=== PATIENT | male | born 1945 | race Caucasian/White ===

== ENCOUNTER 2024-09-06 00:10 | Inpatient (IN) | payer OTHER, MEDICARE ==
[~2024-09-06] VITALS: Ht 175.3 cm; Wt 100.5 kg
[2024-09-06] VITALS (7 sets, daily range): BP systolic 112–136; BP diastolic 60–66; PULSE 51–59; RESP 12–22; TEMP 97.7–98.7; O2SAT 97–99
[~2024-09-06 00:10] MED LIST: ASPI300S PR; DOXA1TAB50 PO; LIS10T PO; MAGN400C3 PO; METO25TA36 PO; MULT-839 PO; NIAC250C16 PO; OMEG-20 PO; OMEP20CA74 PO; POTA80TA PO; SIMV80TA17 PO; [UNRECOGNIZED DRUG - CODE] EX
--- NOTE | 2024-09-06 00:19 | ECG ---
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
[2024-09-06] MEDS: ASPirin 81 mg TAB PO ONE (01:04)
[2024-09-06] MEDS: NITROGLYCERIN 0.4 MG SL TAB SL ONE (01:04)
--- NOTE | 2024-09-06 01:07 | ED.PDOC ---
HPI Comments 79-year-old male who came to ER via EMS for chest pains. Patient has history of hypertension, dyslipidemia and SVTs. For the past 2 days, patient has been having intermittent episodes of chest pains and palpitations, which spontaneously resolved after few minutes. Few hours ago recurrence of chest pain and palpitations which persisted, prompted the patient to come to the emergency room. Noted also shortness of breath, nausea and vomiting. Patient took 324 aspirin prior to coming to the ER Chief Complaint: Chest Pain Time Seen by MD: 01:06 Primary Care Provider: [facility] Reviewed Notes: Litigation Associate Notes Allergies: Coded Allergies: NO KNOWN ALLERGIES (Unverified , 03/23/13) Home Meds Active Scripts Metoprolol Succinate (Toprol Xl) 25 Mg Tab, 25 MG PO DAILY, #30 Prov:JAMAL ALCANTAR MD 03/24/13 Reported Medications Simvastatin (Simvastatin) 80 Mg Tab, 80 MG PO DAILY 03/23/13 Magnesium Oxide (Mg Supplement (MAGNESIUM) 400 Mg Cap, 250 MG PO DAILY 03/23/13 Potassium Gluconate (POTASSIUM GLUCONATE) 80 Mg Tab, 550 MG PO DAILY 03/23/13 Doxazosin Mesylate (Doxazosin Mesylate) 8 Mg Tab, 8 MG PO DAILY 03/23/13 Niacin (NIACIN) 250 Mg Cap, 500 MG PO DAILY 03/23/13 [place]-3 Fatty Acids (FISH OIL) 1,000 Mg Cap, 1000 MG PO DAILY, #2 03/23/13 Multiple Vitamin (MULTI-VITAMIN DAILY) Daily Tab, 1 TAB PO DAILY 03/23/13 Lisinopril (ZESTRIL TABLET) 10 Mg Tb, 10 MG PO DAILY 03/23/13 Omeprazole (PRILOSEC) 20 Mg Cap, 20 MG PO DAILY 03/23/13 Aspirin (ASPIRIN) 300 Mg Rosenbaum, 163 MG NC BID 03/23/13 Desonide Ointment W/ Wound [place] (DESONIL) 0.05 % Kit, 0.05 % EX TUTHSA 03/23/13 Information Source: Patient, Emergency Med Personnel Mode of Arrival: EMS Severity: Moderate Timing: Hours Duration: Intermittent Prehospital treatment: 12 Lead EKG, Accucheck Location: Substernal Quality: Other (palpitations) Onset: With Light Exertion Cardiac Risk Factors: Hyperlipidemia, HTN History of: Similar pain in past Associated Signs and Symptoms: SOB, Palpitations, N/V Past Medical History PAST MEDICAL HISTORY: High Lipids, HTN Past Medical History (Other): SVTs Family History Family History: No family hx of Cancer, No family hx of DM Social History Smoker: Non-Smoker Alcohol: Denies ETOH Use Drugs: Denies Drug Use Lives In: Home Constitutional: denies: chills, diaphoresis, fatigue, fever, malaise, sweats, weakness, others EENTM: denies: blurred vision, double vision, ear bleeding, ear discharge, ear drainage, ear pain, ear ringing, eye pain, eye redness, hearing loss, mouth pain, mouth swelling, nasal discharge, nose bleeding, nose congestion, nose pain, photophobia, tearing, throat pain, throat swelling, voice changes, others Respiratory: denies: cough, hemoptysis, orthopnea, SOB at rest, shortness of breath, SOB with excertion, stridor, wheezing, others Cardiovascular: reports: chest pain, palpitations; denies: dizzy spells, diaphoresis, Dyspnea on exertion, edema, irregular heart beat, left arm pain, lightheadedness, PND, syncope, others Gastrointestinal: denies: abdomen distended, abdominal pain, blood streaked bowels, constipated, diarrhea, dysphagia, difficulty swallowing, hematemesis, melena, nausea, poor appetite, poor fluid intake, rectal bleeding, rectal pain, vomiting, others Genitourinary: denies: burning, dysuria, flank pain, frequency, hematuria, incontinence, penile discharge, penile sore, pain, testicle pain, testicle swelling, urgency, others Neurological: denies: dizziness, fainting, headache, left sided numbness, left sided weakness, numbness, paresthesia, pre-existing deficit, right sided numbness, right sided weakness, seizure, speech problems, tingling, tremors, weakness, others Musculoskeletal: denies: back pain, gout, joint pain, joint swelling, muscle pain, muscle stiffness, neck pain, others Integumetry: denies: bruises, change in color, change in hair/nails, dryness, laceration, lesions, lumps, rash, wounds, others Allergic/Immunocompromised: denies: Difficulty Healing, Frequent Infections, Hives, Itching, others Hematologic/Lymphatic: denies: anemia, blood clots, easy bleeding, easy bruising, swollen glands, others Endocrine: denies: excessive hunger, excessive sweating, excessive thirst, excessive urination, flushing, intolerance to cold, intolerance to heat, unexplained weight gain, unexplained weight loss, others Psychiatric: denies: anxiety, bipolar disorder, depression, hopeless, panic disorder, schizophrenia, sleepless, suicidal, others Physical Exam General Appearance: No Apparent Distress, Normal HEENT: Normal ENT Inspection, Pharynx Normal, TMs Normal Neck: Full Range of Motion, Non-Tender, Normal, Normal Inspection Respiratory: Chest Non-Tender, Lungs Clear, No Accessory Muscle Use, No Respiratory Distress, Normal Breath Sounds Cardiovascular: No Edema, No JVD, No Murmur, No Gallop, Normal Peripheral Pulses, Regular Rate/Rhythm Breast Exam: Deferred Gastrointestinal: No Organomegaly, Non Tender, No Pulsatile Mass, Normal Bowel Sounds, Soft Genitalia: Deferred Pelvic: Deferred Rectal: Deferred Extremities: No calf tenderness, Normal capillary refill, Normal inspection, Normal range of motion, Non-tender, No pedal edema Musculoskeletal : Apperance: Normal Neurologic: Alert, traffic engineering technician II-XII nml as Tested, No Motor Deficits, Normal Affect, Normal Mood, No Sensory Deficits Cerebellar Function: Normal Reflexes: Normal Skin: Dry, Normal Color, Warm Lymphatic: No Adenopathy EKG EKG : Pulse Rate (adult): 58 Cardiac Rhythm: NSR Was a procedure done? Was a procedure done?: No CP Differential Dx Differential Diagnosis: A-fib, A-Flutter, Angina, Anxiety / Panic Attack, Hyperventilation, Hypoxia, PSVT, Sinus Tachycardia Differential Diagnosis: Angina, Chest Wall Pain, Costochondritis, Esophageal reflux/spasm, Gastritis, Myocardial Infarction X-Ray, Labs, Meds, VS Vital Signs Date Time Temp Pulse Resp B/P (MAP) Pulse Ox O2 Delivery O2 Flow Rate FiO2 09/06/24 01:33 59 09/06/24 01:07 58 09/06/24 01:04 110/68 09/06/24 00:18 97.9 64 18 137/88 (104) 98 97.9 09/06/24 00:10 58 Lab Test 09/06/24 01:12 Range/Units White Blood Count 7.0 4.4-10.8 10^3/uL Red Blood Count 4.89 4.5-5.90 10^6/uL Hemoglobin 15.5 13.5-17.5 g/dL Hematocrit 44.2 41.0-53.0 % Mean Corpuscular Volume 90.4 80.0-100.0 fL Mean Corpuscular Hemoglobin 31.6 28.0-32.0 pg Mean Corpuscular Hemoglobin Concent 35.0 32.0-36.0 g/dL Red Cell Distribution Width 14.1 11.8-14.3 % Platelet Count 274 140-450 10^3/uL Mean Platelet Volume 8.1 6.9-10.8 fL Neutrophils (%) (Auto) 68.8 37.0-80.0 % Lymphocytes (%) (Auto) 18.1 10.0-50.0 % Monocytes (%) (Auto) 10.0 0.0-12.0 % Eosinophils (%) (Auto) 2.5 0.0-7.0 % Basophils (%) (Auto) 0.6 0.0-2.0 % Neutrophils # (Auto) 4.8 1.6-8.6 10 ^3/uL Lymphocytes # (Auto) 1.3 0.4-5.4 10 ^3/uL Monocytes # (Auto) 0.7 0-1.3 10 ^3/uL Eosinophils # (Auto) 0.2 0-0.8 10 ^3/uL Basophils # (Auto) 0 0-0.2 10 ^3/uL Nucleated Red Blood Cells 0.0 % Prothrombin Time 10.5 9.3-11.8 sec Prothrombin Time INR 0.99 0.9-1.15 Activated Partial Thromboplast Time 29.8 24.5-34.5 SEC Sodium Level 140 136-145 mmol/L Potassium Level 3.1 L 3.5-5.1 mmol/L Chloride Level 104 98-107 mmol/L Carbon Dioxide Level 27 20-31 mmol/L Anion Gap 9 5-15 Blood Urea Nitrogen 24 H 9-23 mg/dL Creatinine 1.53 H 0.700-1.30 mg/dL Glomerular Filtration Rate Calc 46 >90 mL/min BUN/Creatinine Ratio 15.7 10.0-20.0 Serum Glucose 105 74-106 mg/dL Calcium Level 10.0 8.7-10.4 mg/dL Total Bilirubin 0.4 0.2-1.0 mg/dL Aspartate Amino Transferase (AST) 22 13-40 U/L Alanine Aminotransferase (ALT) 53 H 7-40 U/L Alkaline Phosphatase 71 46-116 U/L Troponin I High Sensitivity 187 *H </=54 ng/L B-Type Natriuretic Peptide 23.08 0-100 pg/mL Total Protein 7.1 5.7-8.2 g/dL Albumin 4.5 3.2-4.8 g/dL Current Medications Medications (Trade) Dose Ordered Sig/Woody Route Start Time Stop Time Status Last Admin Aspirin 162 mg ONCE ONCE PO 09/06/24 00:45 09/06/24 00:46 DC 09/06/24 01:04 Nitroglycerin (Ntrostat Sublingual) 0.4 mg Q5MP ONCE SL 09/06/24 10:00 09/06/24 10:01 09/06/24 01:04 Time of 1ST Reevaluation: 01:01 Reevaluation 1ST: Unchanged Patient Education/Counseling: Diagnosis, Treatment Family Education/Counseling: No Family Present Departure 1 Departure Time of Disposition: 02:07 Impression: Primary Impression: Acute coronary syndrome Additional Impressions: Hypokalemia Renal insufficiency Disposition: ADMITTED INPATIENT Condition: Guarded Discharged With: Self Comments Chest Pain - Acute Coronary Syndrome Chief Complaint: Chest pain History of Present Illness: 79-year-old male presents to the emergency department with a two-day history of intermittent substernal chest pain with pressure-like quality. Patient has a relevant cardiac history including previous episodes of SVT, along with hypertension and hypercholesterolemia. Patient was administered aspirin in the ED and prescribed nitroglycerin PRN for chest pain, though he is currently pain- free at time of evaluation. Review of Systems: Limited by acute presentation Cardiovascular: Positive for chest pain, substernal and pressure-like All other systems reviewed and negative Medications: Aspirin - given in ED Nitroglycerin PRN - prescribed in ED Other home medications not documented Past Medical History: Hypertension Hypercholesterolemia Supraventricular tachycardia (SVT) Lab Results: Troponin: 187 (Elevated) BUN: 24 Creatinine: 1.53 (indicating borderline renal insufficiency) Potassium: 3.1 (Mild hypokalemia) Imaging and Other Relevant Results: EKG: Sinus rhythm at 58 bpm, no ST elevations Chest X-ray: No acute pathology Medical Decision Making: Summary Statement: 79-year-old male with cardiac risk factors presenting with substernal chest pain and elevated troponin, consistent with acute coronary syndrome. Problem List: 1. Acute coronary syndrome 2. Mild hypokalemia 3. Borderline renal insufficiency Differential Diagnosis: 1. Non-ST elevation myocardial infarction (NSTEMI) 2. Unstable angina 3. Stable angina 4. Stress-induced cardiomyopathy 5. Coronary vasospasm ED Course: Patient received aspirin and PRN nitroglycerin. Initial workup revealed elevated troponin, mild hypokalemia, and borderline renal insufficiency. EKG showed no ST elevations. Patient's chest pain resolved during ED stay. Assessment and Plan: 1. Acute Coronary Syndrome: - Admit to hospital for further cardiac workup - Continue aspirin and nitroglycerin PRN - Serial cardiac enzymes and EKGs - Cardiology consultation 2. Hypokalemia (K=3.1): - Initiate potassium replacement - Monitor electrolytes 3. Borderline Renal Insufficiency: - Monitor renal function - Adjust medications as needed based on renal function Billing Information: ICD-10: I21.9 - Acute myocardial infarction, unspecified ICD-10: E87.6 - Hypokalemia ICD-10: N18.9 - Chronic kidney disease, unspecified Critical Care Note Critical Care Time?: Yes (35 min-critical care time only) Critical care comment: Acute chest pain Total critical care time: Approximately 36 minutes Due to a high probability of clinically significant, life threatening deterioration, the patient required my highest level of preparedness to intervene emergently and I personally spent this critical care time directly and personally managing the patient. This critical care time included obtaining a history; examining the patient; pulse oximetry; ordering and review of studies; arranging urgent treatment with development of a management plan; evaluation of patient's response to treatment; frequent reassessment; and, discussions with other providers. This critical care time was performed to assess and manage the high probability of imminent, life-threatening deterioration that could result in multi-organ failure. It was exclusive of separately billable procedures and treating other patients. Stability Stability form required: No Heart Score Heart Score: Heart Score Response (Comments) Value History Moderate Suspicious 1 EKG Repolarization Disturb 1 Age >65 2 Risk Factors >3 or Hx ASHD 2 Troponin >3 x's Normal limit 2 Total 8 I personally scribed for LISA RESENDIZ MD ([email or web address]) on 09/06/24 at 01:07. Electronically submitted by Robby [email or web address]). LISA RESENDIZ MD Sep 06, 2024 01:07
--- NOTE | 2024-09-06 01:22 | DVH ---
CHEST RADIOGRAPH Indication: chest pain Technique: Single frontal view of the chest was obtained Comparison: None FINDINGS: Lines and Tubes: None Lungs: Clear Pleura: No effusion. No pneumothorax. Cardiomediastinal contours: Unremarkable Bones: Unremarkable IMPRESSION: Clear lungs.
[2024-09-06 01:34] LABS: Basophils # (auto) 0 10 ^3/uL (0-0.2); Basophils % (auto) 0.6 % (0.0-2.0); Eosinophils # (auto) 0.2 10 ^3/uL (0-0.8); Eosinophils % (auto) 2.5 % (0.0-7.0); Hematocrit 44.2 % (41.0-53.0); Hemoglobin 15.5 g/dL (13.5-17.5); Lymphocytes # (auto) 1.3 10 ^3/uL (0.4-5.4); Lymphocytes % (auto) 18.1 % (10.0-50.0); Mean Corpuscular Hemoglobin 31.6 pg (28.0-32.0); Mean Corpuscular Volume 90.4 fL (80.0-100.0); Monocytes # (auto) 0.7 10 ^3/uL (0-1.3); Neutrophils # (auto) 4.8 10 ^3/uL (1.6-8.6); Neutrophils % (auto) 68.8 % (37.0-80.0); Platelet Count (auto) 274 10^3/uL (140-450); Red Blood Cells 4.89 10^6/uL (4.5-5.90); Red Cell Distribution Width 14.1 % (11.8-14.3)
--- NOTE | 2024-09-06 01:40 | ECG ---
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
[2024-09-06 01:48] LABS: INR 0.99 (0.9-1.15); Partial Thromboplastin Time 29.8 SEC (24.5-34.5); Prothrombin Time 10.5 sec (9.3-11.8)
[2024-09-06 01:51] LABS: Alkaline Phosphatase 71 U/L (46-116); Anion Gap 9 (5-15); BUN/Creatinine Ratio 15.7 (10.0-20.0); Carbon Dioxide 27 mmol/L (20-31); Chloride 104 mmol/L (98-107); Glucose 105 mg/dL (74-106); Sodium 140 mmol/L (136-145); Total Protein 7.1 g/dL (5.7-8.2)
[2024-09-06 01:52] LABS: Albumin 4.5 g/dL (3.2-4.8); Aspartate Aminotransferase 22 U/L (13-40); Bilirubin, Total 0.4 mg/dL (0.2-1.0)
[2024-09-06 01:54] LABS: Alanine Aminotransferase 53 U/L (7-40); Blood Urea Nitrogen 24 mg/dL (9-23); Potassium 3.1 mmol/L (3.5-5.1)
[2024-09-06] MEDS: POTASSIUM CHL 20 Meq TABLET PO ONE (02:15)
[2024-09-06] MEDS: NITROGLYCERIN 50MG/250ML 250 ML IV ONE (05:00)
[2024-09-06] MEDS ORDERED: MORPHINE SULFATE INJ 2 MG/ml SYRG IV PRN (08:00)
[2024-09-06] MEDS ORDERED: NITROGLYCERIN 0.4 MG SL TAB SL PRN (08:00)
[2024-09-06] MEDS ORDERED: DOCUSATE SOD 100 MG CAP PO PRN (08:00)
[2024-09-06] MEDS ORDERED: HYDROcodone-ACET 5/325MG TAB PO PRN (08:00)
[2024-09-06] MEDS ORDERED: ONDANSETRON HCL 4 MG/2 ML VIAL IV PRN (08:00)
[2024-09-06] MEDS ORDERED: ACETAMINOPHEN 325 MG TAB PO PRN (08:00)
--- NOTE | 2024-09-06 08:06 | DVHHP2 ---
History of Present Illness Reason for Visit: Chest Pain History of Present Illness Ramsey Oliva is a 79-year-old male with past medical history of hypertension, hyperlipidemia, and SVT who comes in with complaints of chest pain. Patient states he has been experiencing intermittent chest pain for the last 2-3 days with activity. Last night about 2100 while resting in bed the chest pain came back, more severe, with bilateral arm numbness/tingling prompting him to come to the hospital. Cardiovascular: HTN, hyperipidemia, Other (SVT) Past Surgical History: Other (Prostate cancer, surgical removal, left hand finger amputation) Smoke: No ALCOHOL: rare Drugs: None Lives: with Family Domestic Violence: Neg Review of Systems Constitutional: No: Fever, Chills, Sweats, Weakness, Malaise, Other Eyes: No: Pain, Vision change, Conjunctivae inflammation, Eyelid inflammation, Other, Redness ENT: No: Ear pain, Ear discharge, Nose pain, Nose discharge, Nose congestion, Mouth pain, Mouth swelling, Throat pain, Throat swelling, Other Respiratory: No: Cough, Dry, Shortness of breath, SOB with excertion, Wheezing, Hemoptysis, Pleuritic Pain, Sputum, Wheezing, Other Cardiovascular: Chest Pain (left arm numbness); No: Palpitations, Orthopnea, Paroxysmal Noc. Dyspnea, Edema, Lt Headedness, Other Gastrointestinal: No: Nausea, Vomiting, Abdominal Pain, Diarrhea, Constipation, Melena, Hematochezia, Other Genitourinary: No Dysuria, No Frequency, No Incontinence, No Hematuria, No Retention, No Other Musculoskeletal: No: other, neck pain, shoulder pain, arm pain, back pain, hand pain, leg pain, foot pain Skin: No: Rash, Lesions, Jaundice, Bruising, Other Neurological: No: Weakness, Numbness, Incoordination, Change in speech, Confusion, Seizures, Other Allergies: Coded Allergies: NO KNOWN ALLERGIES (Unverified , 03/23/13) Medications Current Medications Medications Dose Ordered Sig/Woody Route Start Time Stop Time Status Last Admin Dose Admin Acetaminophen/ Hydrocodone Bitart 1 tab Q4HP PRN PO 09/06/24 08:00 UNV Ondansetron HCl 4 mg Q4HP PRN IV 09/06/24 08:00 UNV Docusate Sodium 100 mg BIDPRN PRN PO 09/06/24 08:00 UNV Acetaminophen 650 mg Q6HP PRN PO 09/06/24 08:00 UNV Nitroglycerin 0.4 mg Q5MINP PRN SL 09/06/24 08:00 UNV Morphine Sulfate 2 mg Q30M PRN IV 09/06/24 08:00 UNV Exam Vital Signs Vital Signs Date Time Temp Pulse Resp B/P (MAP) Pulse Ox O2 Delivery O2 Flow Rate FiO2 09/06/24 06:47 98.4 50 15 115/63 (80) 99 98.4 09/06/24 00:53 Room Air* 0 21 General Appearance: Alert, Oriented X3, Cooperative HEENT: Atraumatic, PERRLA Respiratory: Clear to auscultation, Normal air movement Cardiovascular: Normal S1, Normal S2, Other (Bradycardia) Abdominal: Normal bowel sounds, Soft, No tenderness Extremities: No clubbing, No cyanosis, No edema, Normal pulses, No tenderness/swelling Skin: No rashes, No breakdown, No significant lesion Neuro: Normal gait, Normal speech, Strength at 5/5 X4 ext Psych/Mental Status: Mental status NL, Mood NL Labs/Xrays Labs Test 09/06/24 04:01 09/06/24 01:12 Range/Units Troponin I High Sensitivity 321 *H </=54 ng/L White Blood Count 7.0 4.4-10.8 10^3/uL Red Blood Count 4.89 4.5-5.90 10^6/uL Hemoglobin 15.5 13.5-17.5 g/dL Hematocrit 44.2 41.0-53.0 % Mean Corpuscular Volume 90.4 80.0-100.0 fL Mean Corpuscular Hemoglobin 31.6 28.0-32.0 pg Mean Corpuscular Hemoglobin Concent 35.0 32.0-36.0 g/dL Red Cell Distribution Width 14.1 11.8-14.3 % Platelet Count 274 140-450 10^3/uL Mean Platelet Volume 8.1 6.9-10.8 fL Neutrophils (%) (Auto) 68.8 37.0-80.0 % Lymphocytes (%) (Auto) 18.1 10.0-50.0 % Monocytes (%) (Auto) 10.0 0.0-12.0 % Eosinophils (%) (Auto) 2.5 0.0-7.0 % Basophils (%) (Auto) 0.6 0.0-2.0 % Neutrophils # (Auto) 4.8 1.6-8.6 10 ^3/uL Lymphocytes # (Auto) 1.3 0.4-5.4 10 ^3/uL Monocytes # (Auto) 0.7 0-1.3 10 ^3/uL Eosinophils # (Auto) 0.2 0-0.8 10 ^3/uL Basophils # (Auto) 0 0-0.2 10 ^3/uL Nucleated Red Blood Cells 0.0 % Prothrombin Time 10.5 9.3-11.8 sec Prothrombin Time INR 0.99 0.9-1.15 Activated Partial Thromboplast Time 29.8 24.5-34.5 SEC Sodium Level 140 136-145 mmol/L Potassium Level 3.1 L 3.5-5.1 mmol/L Chloride Level 104 98-107 mmol/L Carbon Dioxide Level 27 20-31 mmol/L Anion Gap 9 5-15 Blood Urea Nitrogen 24 H 9-23 mg/dL Creatinine 1.53 H 0.700-1.30 mg/dL Glomerular Filtration Rate Calc 46 >90 mL/min BUN/Creatinine Ratio 15.7 10.0-20.0 Serum Glucose 105 74-106 mg/dL Calcium Level 10.0 8.7-10.4 mg/dL Total Bilirubin 0.4 0.2-1.0 mg/dL Aspartate Amino Transferase (AST) 22 13-40 U/L Alanine Aminotransferase (ALT) 53 H 7-40 U/L Alkaline Phosphatase 71 46-116 U/L B-Type Natriuretic Peptide 23.08 0-100 pg/mL Total Protein 7.1 5.7-8.2 g/dL Albumin 4.5 3.2-4.8 g/dL CHEST RADIOGRAPH FINDINGS: Lines and Tubes: None Lungs: Clear Pleura: No effusion. No pneumothorax. Cardiomediastinal contours: Unremarkable Bones: Unremarkable IMPRESSION: Clear lungs. Assessment/Plan Assessment/Plan Assessment: Acute coronary syndrome, Hypokalemia, Hypertension, Hyperlipidemia, Obesity, Plan: Admit to Tele, Cardiology consult, ECHO, NPO, TSH, Lipid panel, ACS protocol, Home medications reconciled, Metoprolol held due to bradycardia, Plan discussed with: Patient My Orders Orders - ROLANDO MEIER FIELD SERVICE REP Procedure Category Date Status Time Admit ADMIT 09/06/24 Transmitted 07:47 Code Status CODE 09/06/24 Transmitted 07:47 Hydrocodone-Acet PHA 09/06/24 Logged 5/325mg Tab ([place] 08:00 Ondansetron Hcl PHA 09/06/24 Logged (Zofran) 08:00 Docusate Sodium PHA 09/06/24 Logged Capsule (Colace 08:00 Complete Blood Count LAB 09/07/24 Verified 04:00 Comprehensive LAB 09/07/24 Verified Metabolic Panel 04:00 Npo (Nothing By DIET 09/06/24 Transmitted Mouth) Diet Breakfast Echo 2d Mode Cardiac US 09/06/24 Logged DOP 07:47 Condition: Serious DAVID 09/06/24 In Process 07:47 Acetaminophen Tablet PHA 09/06/24 Logged (Tylenol Tablet) 08:00 Nitroglycerin PHA 09/06/24 Logged Sublingual (Ntrostat 08:00 Morphine Sulfate PHA 09/06/24 Logged Injection 08:00 Stat Ekg For Chest DAVID 09/06/24 In Process Pain 07:47 Notify Md Of Changes DAVID 09/06/24 In Process From Base 07:47 Full Decator Operator For DAVID 09/06/24 In Process 24 Hours 07:47 Emergency Dysrhythmia DAVID 09/06/24 In Process Protocol 07:47 Rhythm Strips Once DAVID 09/06/24 In Process Every Shift 07:47 Oxygen By Nasal RT 09/06/24 Transmitted Cannula 07:47 * Cardiology Consult CONS 09/06/24 Transmitted 07:47 Date of Service: Sep 06, 2024 Billing Provider: ROLANDO MEIER Common Visit Codes: [id number] INP/OBS CARE (MOD) ROLANDO MEIER Sep 06, 2024 08:06
[2024-09-06] MEDS: MAGNESIUM OXIDE 400 MG TAB PO SCH (10:07)
--- NOTE | 2024-09-06 11:17 | DVHINCON2 ---
SAIRA FONG [facility] 09/06/24 1117: Date Seen: Sep 06, 2024 Referring Physician VERONICA Du Reason for Consultation ACS History of Present Illness This is a 79-year-old male patient who presents to the emergency room with chief complaint of chest pain for approximately four days. The patient reports worsening chest pain for the last four days and decided to come to the emergency room for further evaluation. He describes the pain as unprovoked, intermittent, pressure-like in nature, and midsternal with radiation to bilateral arms. A ssociated symptoms include shortness of breath. Initial twelve lead electrocardiogram reveals sinus bradycardia without any significant ST segment changes. Initial troponin level of 187ng/L with peak level at 321ng/L. Significant past medical history includes hypertension, dyslipidemia, GERD, gout, prostate cancer status post radiation and prostatectomy, and obesity. The patient reports a previous angiogram approximately 10 years ago without any catheter based intervention. He states he has not followed up with a cloth designer. Past Medical History Past medical history reviewed. No other significant than mentioned above. Past Surgical History Prostatectomy Left ring finger amputation Family History Family history reviewed. Social History Patient has a 40 pack-year history, quit smoking in 1984 Patient reports to drinking one cup of whiskey per week Denies any illicit drug use Allergies: Coded Allergies: NO KNOWN ALLERGIES (Unverified , 03/23/13) Home Meds Reported Medications Naproxen (NAPROSYN TABLET) 500 Mg Tb, 1 TAB PO BID PRN, #60 TAB 1 Refill 09/06/24 Gabapentin (Gabapentin) 300 Mg Cap, 1 CAP PO BID, #90 CAP 5 Refills 09/06/24 Potassium Chloride (POTASSIUM CHLORIDE CR) 10 Meq Tb, 1 TAB PO DAILY, #30 TAB 5 Refills 09/06/24 Magnesium Oxide (MAGNESIUM OXIDE) 400 Mg Tab, 1 TAB PO DAILY, #30 TAB 5 Refills 09/06/24 Metoprolol Tartrate (Metoprolol Tartrate) 25 Mg Tab, 12.5 MG PO BID, TAB 09/06/24 Losartan Potassium (Losartan Potassium) 25 Mg Tab, 1 TAB PO BID, #90 TAB 1 Refill 09/06/24 Chlorthalidone (Chlorthalidone) 25 Mg Tab, 25 MG PO DAILY, TAB 09/06/24 Simvastatin (Simvastatin) 40 Mg Tab, 1 TAB PO QPM, #30 TAB 5 Refills 09/06/24 Omeprazole (Omeprazole Dr) 20 Mg Cap, 20 MG PO DAILY, CAP 09/06/24 Allopurinol (Allopurinol) 300 Mg Tab, 300 MG PO DAILY, TAB 09/06/24 Magnesium Oxide (Mg Supplement (MAGNESIUM) 400 Mg Cap, 250 MG PO DAILY 03/23/13 Discontinued Reported Medications Simvastatin (Simvastatin) 80 Mg Tab, 80 MG PO DAILY 03/23/13 Potassium Gluconate (POTASSIUM GLUCONATE) 80 Mg Tab, 550 MG PO DAILY 03/23/13 Doxazosin Mesylate (Doxazosin Mesylate) 8 Mg Tab, 8 MG PO DAILY 03/23/13 Niacin (NIACIN) 250 Mg Cap, 500 MG PO DAILY 03/23/13 [place]-3 Fatty Acids (FISH OIL) 1,000 Mg Cap, 1000 MG PO DAILY, #2 03/23/13 Multiple Vitamin (MULTI-VITAMIN DAILY) Daily Tab, 1 TAB PO DAILY 03/23/13 Lisinopril (ZESTRIL TABLET) 10 Mg Tb, 10 MG PO DAILY 03/23/13 Omeprazole (PRILOSEC) 20 Mg Cap, 20 MG PO DAILY 03/23/13 Aspirin (ASPIRIN) 300 Mg Rosenbaum, 163 MG TN BID 03/23/13 Desonide Ointment W/ Wound Dajuan (DESONIL) 0.05 % Kit, 0.05 % EX TUTHSA 03/23/13 Discontinued Scripts Metoprolol Succinate (Toprol Xl) 25 Mg Tab, 25 MG PO DAILY, #30 Prov:JAMAL ALCANTAR MD 03/24/13 Home Meds Home medications reviewed. Current Medications Current Medications Medications (Trade) Dose Ordered Sig/Woody Route PRN Reason Start Time Stop Time Status Last Admin Acetaminophen/ Hydrocodone Bitart (Midkiff 5/325MG Tab) 1 tab Q4HP PRN PO MODERATE PAIN (4-6 PAIN SCALE) 09/06/24 08:00 Ondansetron HCl (Zofran) 4 mg Q4HP PRN IV NAUSEA / VOMITING 09/06/24 08:00 Docusate Sodium (Colace Capsule) 100 mg BIDPRN PRN PO FOR CONSTIPATION 09/06/24 08:00 Acetaminophen (Tylenol Tablet) 650 mg Q6HP PRN PO PAIN SCALE 1-3 OR TEMP>100.4 09/06/24 08:00 Nitroglycerin (Ntrostat Sublingual) 0.4 mg Q5MINP PRN SL FOR CHEST PAIN 09/06/24 08:00 Morphine Sulfate 2 mg Q30M PRN IV FOR CHEST PAIN 09/06/24 08:00 Magnesium Oxide (Mag-Ox Tablet) 400 mg DAILY PO 09/06/24 10:00 09/06/24 10:07 Review of Systems Constitutional: No symptom reported Ears, Nose, & Throat: No symptom reported Eyes: No symptom reported Neurological: No symptoms reported Pulmonary/Respiratory: Shortness of breath Cardiovascular: Chest pain Gastrointestinal: No symptom reported Genitourinary: No symptom reported Musculoskeletal: No symptom reported Skin: No symptom reported Psychiatric: No symptom reported Endocrine: No symptom reported Hematologic/Lymphatic: No symptom reported Vital Signs Vital Signs Date Time Temp Pulse Resp B/P (MAP) Pulse Ox O2 Delivery O2 Flow Rate FiO2 09/06/24 08:00 98.9 49 12 106/63 (77) 99 98.9 09/06/24 07:35 Room Air* 0 21 Physical Exam General Appearance: Cooperative. Obese Pulmonary/Respiratory: Clear, bilateral breaths sounds. Cardiovascular/Chest: Regular rate and rhythm. Peripheral Pulses: 2+ Radial (R). 2+ Radial (L). 2+ Pedal (R). 2+ Pedal (L) Abdominal Exam: Normal bowel sounds. Ankle Exam: Negative ankle edema Lower extremities: Negative lower extremity edema Neuro/Mental Status: A/OX4, coherent. Thoughts/Psych: Normal thought pattern. Appropriate mood and affect. Good judgment and insight. Appearance: No acute distress. Skin Exam: Normal inspection. Normal color. Warm and dry. Labs/Diagnostic Data Labs Test 09/06/24 10:30 09/06/24 04:01 09/06/24 02:30 09/06/24 01:12 Range/Units Thyroid Stimulating Hormone (TSH) 1.74 0.55-4.78 uIU/mL Magnesium Level 2.0 1.6-2.6 mg/dL Triglycerides Level 195 H < 150 mg/dL Cholesterol Level 146 < 200 mg/dL LDL Cholesterol 107 H < 100 mg/dL HDL Cholesterol 28 L 40-59 mg/dL White Blood Count 7.0 4.4-10.8 10^3/uL Red Blood Count 4.89 4.5-5.90 10^6/uL Hemoglobin 15.5 13.5-17.5 g/dL Hematocrit 44.2 41.0-53.0 % Mean Corpuscular Volume 90.4 80.0-100.0 fL Mean Corpuscular Hemoglobin 31.6 28.0-32.0 pg Mean Corpuscular Hemoglobin Concent 35.0 32.0-36.0 g/dL Red Cell Distribution Width 14.1 11.8-14.3 % Platelet Count 274 140-450 10^3/uL Mean Platelet Volume 8.1 6.9-10.8 fL Neutrophils (%) (Auto) 68.8 37.0-80.0 % Lymphocytes (%) (Auto) 18.1 10.0-50.0 % Monocytes (%) (Auto) 10.0 0.0-12.0 % Eosinophils (%) (Auto) 2.5 0.0-7.0 % Basophils (%) (Auto) 0.6 0.0-2.0 % Neutrophils # (Auto) 4.8 1.6-8.6 10 ^3/uL Lymphocytes # (Auto) 1.3 0.4-5.4 10 ^3/uL Monocytes # (Auto) 0.7 0-1.3 10 ^3/uL Eosinophils # (Auto) 0.2 0-0.8 10 ^3/uL Basophils # (Auto) 0 0-0.2 10 ^3/uL Nucleated Red Blood Cells 0.0 % Prothrombin Time 10.5 9.3-11.8 sec Prothrombin Time INR 0.99 0.9-1.15 Activated Partial Thromboplast Time 29.8 24.5-34.5 SEC Sodium Level 140 136-145 mmol/L Potassium Level 3.1 L 3.5-5.1 mmol/L Chloride Level 104 98-107 mmol/L Carbon Dioxide Level 27 20-31 mmol/L Anion Gap 9 5-15 Blood Urea Nitrogen 24 H 9-23 mg/dL Creatinine 1.53 H 0.700-1.30 mg/dL Glomerular Filtration Rate Calc 46 >90 mL/min BUN/Creatinine Ratio 15.7 10.0-20.0 Serum Glucose 105 74-106 mg/dL Hemoglobin A1c 5.6 <5.7 % A1C Calcium Level 10.0 8.7-10.4 mg/dL Total Bilirubin 0.4 0.2-1.0 mg/dL Aspartate Amino Transferase (AST) 22 13-40 U/L Alanine Aminotransferase (ALT) 53 H 7-40 U/L Alkaline Phosphatase 71 46-116 U/L B-Type Natriuretic Peptide 23.08 0-100 pg/mL Total Protein 7.1 5.7-8.2 g/dL Albumin 4.5 3.2-4.8 g/dL Assessment NSTEMI, rule out coronary artery disease Hypertension Dyslipidemia Hypokalemia Acute kidney injury History of tobacco use Obesity Plan/Recommendation We will continue with the following plan/recommendations (Dr. Bland): * Echocardiogram reveals EF 50-55% with possible distal anteroseptal hypokinesis * Chest pain protocol * POLI score: 4 points * HEART score: 6 points (moderate score) * Heparin drip for ACS protocol * Lipid-lowering agent and single antiplatelet therapy * Cardiac surveillance Discussed with . Given the patient's clinical presentation, comorbidities, elevated troponin level, and HEART/POLI score, the patient may benefit from coronary angiogram with left heart catheterization. The procedure was discussed with the patient in full detail including risks and benefits. Risks include but are not limited to bleeding, contrast-induced nephropathy, stroke, and even . The patient understands and is agreeable to undergo the procedure. At this time, the patient's renal function is not optimal. We will initiate the patient on gentle IV fluid hydration and reassess renal function tomorrow. The patient will be tentatively scheduled for coronary angiogram on 09/08/24. Thank you for allowing us to care for this patient. Please call with any questions or concerns. Critical care time spent: 44 minutes This medical document was created using an electronic medical record system with voice recognition software and computerized dictation system. Although this document has been carefully reviewed, there might still be some phonetic and typographical errors. Occasional wrong-word or ``sound-alike substitutions may have occurred due to the inherent limitations of voice recognition software. These areas are purely typographical due to imperfections of the software programs and do not reflect any compromise in the patient's medical care. Please read the chart carefully and recognize, using context, where these substitutions have occurred. Plan discussed with: Patient NYHA Physical activity limitations: NA Date of Service: Sep 06, 2024 Billing Provider: SAIRA FONG Cardiology Common Codes: [id number] INP/OBS CARE (High) Cardiology Consultation Codes: [id number] CONSULT <45MIN LITZY BLAND DO 09/06/24 2337: Date Seen: Sep 06, 2024 Allergies: Coded Allergies: NO KNOWN ALLERGIES (Unverified , 03/23/13) Home Meds Reported Medications Naproxen (NAPROSYN TABLET) 500 Mg Tb, 1 TAB PO BID PRN, #60 TAB 1 Refill 09/06/24 Gabapentin (Gabapentin) 300 Mg Cap, 1 CAP PO BID, #90 CAP 5 Refills 09/06/24 Potassium Chloride (POTASSIUM CHLORIDE CR) 10 Meq Tb, 1 TAB PO DAILY, #30 TAB 5 Refills 09/06/24 Magnesium Oxide (MAGNESIUM OXIDE) 400 Mg Tab, 1 TAB PO DAILY, #30 TAB 5 Refills 09/06/24 Metoprolol Tartrate (Metoprolol Tartrate) 25 Mg Tab, 12.5 MG PO BID, TAB 09/06/24 Losartan Potassium (Losartan Potassium) 25 Mg Tab, 1 TAB PO BID, #90 TAB 1 Refill 09/06/24 Chlorthalidone (Chlorthalidone) 25 Mg Tab, 25 MG PO DAILY, TAB 09/06/24 Simvastatin (Simvastatin) 40 Mg Tab, 1 TAB PO QPM, #30 TAB 5 Refills 09/06/24 Omeprazole (Omeprazole Dr) 20 Mg Cap, 20 MG PO DAILY, CAP 09/06/24 Allopurinol (Allopurinol) 300 Mg Tab, 300 MG PO DAILY, TAB 09/06/24 Magnesium Oxide (Mg Supplement (MAGNESIUM) 400 Mg Cap, 250 MG PO DAILY 03/23/13 Discontinued Reported Medications Simvastatin (Simvastatin) 80 Mg Tab, 80 MG PO DAILY 03/23/13 Potassium Gluconate (POTASSIUM GLUCONATE) 80 Mg Tab, 550 MG PO DAILY 03/23/13 Doxazosin Mesylate (Doxazosin Mesylate) 8 Mg Tab, 8 MG PO DAILY 03/23/13 Niacin (NIACIN) 250 Mg Cap, 500 MG PO DAILY 03/23/13 [place]-3 Fatty Acids (FISH OIL) 1,000 Mg Cap, 1000 MG PO DAILY, #2 03/23/13 Multiple Vitamin (MULTI-VITAMIN DAILY) Daily Tab, 1 TAB PO DAILY 03/23/13 Lisinopril (ZESTRIL TABLET) 10 Mg Tb, 10 MG PO DAILY 10/17/13 Omeprazole (PRILOSEC) 20 Mg Cap, 20 MG PO DAILY 03/23/13 Aspirin (ASPIRIN) 300 Mg Rosenbaum, 163 MG TN BID 03/23/13 Desonide Ointment W/ Wound Dajuan (DESONIL) 0.05 % Kit, 0.05 % EX TUTHSA 03/23/13 Discontinued Scripts Metoprolol Succinate (Toprol Xl) 25 Mg Tab, 25 MG PO DAILY, #30 Prov:JAMAL ALCANTAR MD 03/24/13 Plan/Recommendation The patient was discussed with Saira Fong NP. I agree with her Assessment and Plan, which was formulated with me. Plan discussed with: Patient Date of Service: Sep 06, 2024 Billing Provider: LITZY BLAND DO Cardiology Common Codes: [id number] INP/OBS CARE (High) SAIRA FONG Sep 06, 2024 11:17 LITZY BLAND DO Sep 06, 2024 23:37
[2024-09-06] MEDS ORDERED: NAPROXEN 500 MG TAB PO PRN (15:00)
[2024-09-06] MEDS ORDERED: LOSA-533 PO (15:04)
[2024-09-06] MEDS ORDERED: SIMV40TA18 PO (15:04)
[2024-09-06] MEDS ORDERED: CHLO25TA2 PO (15:04)
[2024-09-06] MEDS ORDERED: METO25TA5 PO (15:04)
[2024-09-06] MEDS ORDERED: GABA-1250 PO (15:04)
[2024-09-06] MEDS ORDERED: ALLO300T2 PO (15:04)
[2024-09-06] MEDS ORDERED: MAGN400T40 PO (15:04)
[2024-09-06] MEDS ORDERED: POTA-36 PO (15:04)
[2024-09-06] MEDS ORDERED: NAP500T PO (15:04)
[2024-09-06] MEDS ORDERED: OMEP1CAP70 PO (15:04)
--- NOTE | 2024-09-06 15:10 | DVHSR ---
APPROVED REPORT EXAM: LIMITED Two-dimensional and M-mode echocardiogram with Doppler and color Doppler. Blood Pressure: 115/63 mmHg INDICATION Acute coronary syndrome RISK FACTORS Obesity: Height: 5'9, Weight: 215 DIMENSIONS LVDd (3.8-5.7cm)LA (2D)3.7 (1.9-4.0cm)Aortic Root3.4 (2.0-3.7cm) LVDs (2.5-4.0cm)LA (MM) (1.9-4.0cm)Aortic Cusp Exc1.6 (1.5-2.0cm) EF (%) 50.0 (55-70%)Rt. Atrium4.0 (1.9-4.0cm)Asc. Aorta cm Mitral Valve MitralMitral Stenosis E wave0.50m/sMV Mean GR.mmHg A wave0.75m/sMV Peak GR.mmHg E/A ratio0.72D MVAcm2 DECEL [id number] 1/2 Timems Aortic Valve Aortic ValveAortic Stenosis V10.91m/Reid Mean GR.4mmHg V21.30m/Reid Peak GR.7mmHg LVOT Diameter2.3 (1.8-2.4cm)Doppler AVA2.91cm2 Pulmonic Valve V20.84m/s Tricuspid Valve TR Velocity2.10m/s [id number] Other Information Quality : Technically LimitedRhythm : Technically limited study due to patient position.body habitus. Conclusion TDS. Only apical and subcostal views done. Normal biventricular size with low normal LV systolic function. LVEF 50-55%. Possible distal anterose ptal hypokinesis. Grade 1 diastolic dysfunction. No significant valvular disease. Normal size IVC. No pericardial effusion.
--- NOTE | 2024-09-06 15:38 | DVHPN2 ---
Assessment/Plan Assessment/Plan Progress note 79 yo M with chest pain Seen today during rounds. Chest pain started from a while back, lasts 2 minutes, resolved on its own, however on wednesday started to have similar chest pain that lasts 20 minutes. Currently no acive chest pain. 20PY tobacco history. Hx of prostate cancer, had radiation and surgery, no chemo. at home taking alupurinol, omepraole, simvastatin, chlorthalidone, losartan, metop tartrate, gabapentin, naproxen, sildenafil Labs ekg imaging reviewed Assessment and plan NSTEMI HTN HLD Hypokalemia Ex smoker Obesity hx of prostate cancer s/p ressection and radiation ED Admit to telemetry cardio consult appreciated patient will benefit from inpatient ischemic workup echo resume home meds asa, statin replete K Diet cardiac DVT ppx lovenox Code status full code Plan discussed with: Patient My Orders Orders - MIKE SOLARES MD Procedure Category Date Status Time Magnesium LAB 09/07/24 Verified 04:00 Phosphorus LAB 09/07/24 Verified 04:00 Atorvastatin (Lipitor) PHA 09/06/24 Transmitted 15:45 Atorvastatin (Lipitor) PHA 09/06/24 Transmitted 22:00 Losartan Tablet PHA 09/07/24 Transmitted (Cozaar Tablet) 10:00 Metoprolol Tartrate PHA 09/06/24 Transmitted Tablet (Lopressor Ta 22:00 Date of Service: Sep 06, 2024 Billing Provider: MIKE SOLARES MD Common Visit Codes: [id number] INP/OBS CARE(HIGH) MIKE SOLARES MD Sep 06, 2024 15:38
[2024-09-06 15:41] LABS: Potassium 3.9 mmol/L (3.5-5.1)
[2024-09-06 15:48] LABS: Magnesium 2.1 mg/dL (1.6-2.6)
[2024-09-06] MEDS: ATORVASTATIN 20 MG TAB PO ONE (16:04)
[2024-09-06] MEDS: SODIUM CHLORIDE 0.9% 1,000 ML IV ONE (16:04)
[2024-09-06 16:28] LABS: Basophils # (auto) 0.1 10 ^3/uL (0-0.2); Basophils % (auto) 0.8 % (0.0-2.0); Eosinophils # (auto) 0.2 10 ^3/uL (0-0.8); Eosinophils % (auto) 2.5 % (0.0-7.0); Hematocrit 43.8 % (41.0-53.0); Hemoglobin 15.6 g/dL (13.5-17.5); Lymphocytes # (auto) 1.4 10 ^3/uL (0.4-5.4); Lymphocytes % (auto) 20.6 % (10.0-50.0); Mean Corpuscular Hemoglobin 31.9 pg (28.0-32.0); Mean Corpuscular Hgb Conc. 35.5 g/dL (32.0-36.0); Monocytes # (auto) 0.6 10 ^3/uL (0-1.3); Neutrophils # (auto) 4.6 10 ^3/uL (1.6-8.6); Neutrophils % (auto) 67.1 % (37.0-80.0); Platelet Count (auto) 247 10^3/uL (140-450); Red Blood Cells 4.87 10^6/uL (4.5-5.90); Red Cell Distribution Width 14.1 % (11.8-14.3); White Blood Cell 6.9 10^3/uL (4.4-10.8)
[2024-09-06] MEDS: HEPARIN SODIUM (PORCINE) 5000 UNITS/ML 1ML VIAL IV ONE (16:44)
[2024-09-06 16:50] LABS: INR 1.01 (0.9-1.15); Partial Thromboplastin Time 26.7 SEC (24.5-34.5); Prothrombin Time 10.7 sec (9.3-11.8)
[2024-09-06] MEDS: HEPARIN DRIP/D5W 100UNITS/ML 250 ML IV SCH (17:57)
[2024-09-06] MEDS ORDERED: ATORVASTATIN 20 MG TAB PO SCH ×2 (22:00)
[2024-09-06] MEDS ORDERED: LOSARTAN POTASSIUM 25 MG TAB PO SCH (22:00)
[2024-09-06] MEDS: METOPROLOL TARTRATE 25 MG TAB PO SCH (22:00)
[2024-09-06] MEDS: GABAPENTIN 300 MG CAP PO SCH (22:29)
[2024-09-07] VITALS (8 sets, daily range): BP systolic 107–128; BP diastolic 59–74; PULSE 51–58; RESP 15–20; TEMP 97.5–98.3; O2SAT 92–100
[2024-09-07 01:06] LABS: INR 1.01 (0.9-1.15); Partial Thromboplastin Time 39.5 SEC (24.5-34.5); Prothrombin Time 10.7 sec (9.3-11.8)
[2024-09-07] MEDS: HEPARIN DRIP/D5W 100UNITS/ML 250 ML IV SCH ×3 (01:40→15:53)
--- NOTE | 2024-09-07 01:47 | CONS ---
Pharmacy Clinical Information: Chemistry Test 09/06/24 02:30 09/06/24 15:22 Magnesium Level 2.0 mg/dL (1.6-2.6) 2.1 mg/dL (1.6-2.6) Coagulation Test 09/06/24 16:08 09/07/24 00:30 Prothrombin Time 10.7 sec (9.3-11.8) 10.7 sec (9.3-11.8) Prothrombin Time INR 1.01 (0.9-1.15) 1.01 (0.9-1.15) Activated Partial Thromboplast Time 26.7 SEC (24.5-34.5) 39.5 SEC (24.5-34.5) H Lipid panel Test 09/06/24 02:30 Cholesterol Level 146 mg/dL (< 200) HDL Cholesterol 28 mg/dL (40-59) L Triglycerides Level 195 mg/dL (< 150) H HgA1c, TSH Test 09/06/24 04:01 Thyroid Stimulating Hormone (TSH) 1.74 uIU/mL (0.55-4.78) LABS 09/07 AT 0030: PTT=39.5, SUBTHERAPEUTIC, NOTIFIED RN TO INCREASE RATE TO 1200 UNITS/HR=12 ML/HR, NEXT PTT @ 0730, PER RN PT NOT SHOWING SIGNS OF BLEEDING, RN NOTIFIED OF PLAN. PT=10.7, INR=1.01. KARISSA SANTOS Sep 07, 2024 01:47
[2024-09-07 06:41] LABS: Basophils # (auto) 0 10 ^3/uL (0-0.2); Basophils % (auto) 0.6 % (0.0-2.0); Eosinophils # (auto) 0.2 10 ^3/uL (0-0.8); Eosinophils % (auto) 3.5 % (0.0-7.0); Hematocrit 44.3 % (41.0-53.0); Hemoglobin 15.5 g/dL (13.5-17.5); Lymphocytes # (auto) 1.3 10 ^3/uL (0.4-5.4); Lymphocytes % (auto) 22.2 % (10.0-50.0); Mean Corpuscular Hemoglobin 31.4 pg (28.0-32.0); Mean Corpuscular Volume 89.7 fL (80.0-100.0); Monocytes # (auto) 0.6 10 ^3/uL (0-1.3); Monocytes % (auto) 9.7 % (0.0-12.0); Neutrophils # (auto) 3.7 10 ^3/uL (1.6-8.6); Platelet Count (auto) 233 10^3/uL (140-450); Red Blood Cells 4.94 10^6/uL (4.5-5.90); Red Cell Distribution Width 14.3 % (11.8-14.3); White Blood Cell 5.7 10^3/uL (4.4-10.8)
[2024-09-07 06:48] LABS: Albumin 4.1 g/dL (3.2-4.8); Alkaline Phosphatase 61 U/L (46-116); Anion Gap 9 (5-15); Aspartate Aminotransferase 24 U/L (13-40); BUN/Creatinine Ratio 18.1 (10.0-20.0); Blood Urea Nitrogen 19 mg/dL (9-23); Calcium 9.5 mg/dL (8.7-10.4); Carbon Dioxide 26 mmol/L (20-31); Chloride 107 mmol/L (98-107); Magnesium 2.1 mg/dL (1.6-2.6); Phosphorus 3.7 mg/dL (2.4-5.1); Sodium 142 mmol/L (136-145); Total Protein 6.6 g/dL (5.7-8.2)
[2024-09-07 06:50] LABS: Alanine Aminotransferase 48 U/L (7-40); Glucose 111 mg/dL (74-106); Potassium 3.5 mmol/L (3.5-5.1)
[2024-09-07 06:54] LABS: Bilirubin, Total 0.4 mg/dL (0.2-1.0)
[2024-09-07 08:35] LABS: INR 1.02 (0.9-1.15); Partial Thromboplastin Time 49.2 SEC (24.5-34.5); Prothrombin Time 10.8 sec (9.3-11.8)
--- NOTE | 2024-09-07 08:47 | DVHPN2 ---
Assessment/Plan Assessment/Plan Progress note 79 yo M with chest pain. Chest pain started from a while back, lasts 2 minutes, resolved on its own, however on wednesday started to have similar chest pain that lasts 20 minutes. Currently no acive chest pain. 20PY tobacco history. Hx of prostate cancer, had radiation and surgery, no chemo. at home taking alupurinol, omepraole, simvastatin, chlorthalidone, losartan, metop tartrate, gabapentin, naproxen, sildenafil. ET decreased to half block the past month. Had prior cath 12 years ago with no significant stenosis per aptient. Seen today during rounds. seen by cardio, plan for cath 09/08. started on heparin drip. echo with [facility] Physical exam alert oriented x3 clear breath sound s1 s2 rrr no murmur no chest wall tenderness abdomen soft nontender no LE edema Labs ekg imaging reviewed Assessment and plan NSTEMI HTN HLD Hypokalemia resolved Ex smoker Obesity hx of prostate cancer s/p ressection and radiation ED HFpEF NYHA class II acute? diastolic heart failure possible sleep apnea Admit to telemetry cardio consult appreciated echo done resume home meds asa, statin c/w heparin drip plan for [facility] 09/08 strict i&O daily weights outpatient sleep study after DC Diet cardiac DVT ppx on heparin drip Code status full code Plan discussed with: Patient My Orders Orders - MIKE SOLARES MD Procedure Category Date Status Time Losartan Tablet PHA 09/07/24 In Process (Cozaar Tablet) 10:00 Metoprolol Tartrate PHA 09/06/24 In Process Tablet (Lopressor Ta 22:00 Atorvastatin (Lipitor) PHA 09/07/24 In Process 22:00 Date of Service: Sep 07, 2024 Billing Provider: MIKE SOLARES MD Common Visit Codes: [id number] INP/OBS CARE(HIGH) Secondary Visit Codes: [id number] CARE PLAN 30 MINUTES MIKE SOLARES MD Sep 07, 2024 08:47
--- NOTE | 2024-09-07 09:00 | CONS ---
Pharmacy Clinical Information: IAN THORPE TEMPLATE: SPOKE TO ESTUARDO BURNETT REGARDING HEPARIN DOSE CHANGE CURRENT DOSE: 12 UNITS/HR CURRENT APTT: ON 0742 @49.2 DATE AND TIME OF NEW STARTED: 09/07/24 @0900 NEXT APTT: @1500 ESTUARDO BURNETT READ BACK NEW DOSE: 14 UNITS/HR JERONIMO DUNN PHARMACIST Sep 07, 2024 09:00
[2024-09-07] MEDS: ASPirin 81 mg TAB PO SCH (09:52)
[2024-09-07] MEDS: CHLORTHALIDONE 25 MG TAB PO SCH (09:53)
[2024-09-07] MEDS: ALLOPURINOL 100 MG TAB PO SCH (09:56)
[2024-09-07] MEDS: PANTOPRAZOLE 40 MG TAB PO SCH (09:57)
[2024-09-07] MEDS ORDERED: DIPH25CA66 PO (10:07)
[2024-09-07] MEDS ORDERED: GARL400T9 PO (10:07)
[2024-09-07] MEDS ORDERED: MAGN250T3 PO (10:07)
--- NOTE | 2024-09-07 10:22 | ECG ---
[facility] Test Date: 2024-09-06 Test Time: 03:00:37 Pat Name: LORAINE ORTIZ Department: ED Room: [facility] Gender: M [employer]er: ER : 1945 Requested By: LISA RESENDIZ Order Number: [id number] Reading MD: Glen Proctor Measurements Intervals [place] Rate: 53 P: 32 LA: 222 QRS: 20 QRSD: 98 T: 67 QT: 436 QTc: 410 Interpretive Statements Sinus rhythm Prolonged LA interval Electronically Signed On 09-08-2024 18:40:08 PDT by Glen Proctor Please click the below link to view image of tracing.
[2024-09-07] MEDS: LOSARTAN POTASSIUM 50 MG TAB PO SCH (10:32)
[2024-09-07] MEDS: EMPAGLIFLOZIN 10 MG TAB PO SCH (12:29)
[2024-09-07] MEDS: METOPROLOL SUCCINATE XL 50 MG TAB PO SCH (12:30)
--- NOTE | 2024-09-07 13:57 | DVHPN2 ---
Consult Progress Note Subjective Other Systems: Patient in sinus bradycardia on equipment monitor phototypesetting. Denies any cardiac symptoms at time of assessment. Objective vital signs Vital Sign Date Time Temp Pulse Resp B/P (MAP) Pulse Ox O2 Delivery O2 Flow Rate FiO2 09/07/24 13:06 97.5 58 20 128/74 (92) 95 97.5 09/07/24 08:00 Nasal Cannula* 2 28 Total Intake and Output 09/06/24 09/06/24 09/07/24 14:59 22:59 06:59 Intake Total 120 ml 275 ml Output Total 125 ml 425 ml Balance -5 ml -150 ml medications Current Medications Medications Dose Ordered Sig/Woody Route Start Time Stop Time Status Last Admin Dose Admin Acetaminophen 650 mg Q6HP PRN PO 09/06/24 08:00 Magnesium Oxide 400 mg DAILY PO 09/06/24 10:00 09/07/24 09:58 400 MG Chlorthalidone 25 mg DAILY PO 09/07/24 10:00 09/07/24 09:53 25 MG Gabapentin 300 mg BID PO 09/06/24 22:00 09/06/24 22:29 300 MG Naproxen 500 mg BID PRN PO 09/06/24 15:00 Hold Allopurinol 300 mg DAILY PO 09/07/24 10:00 09/07/24 09:56 300 MG Pantoprazole Sodium 40 mg DAILY PO 09/07/24 10:00 09/07/24 09:57 40 MG Aspirin 81 mg DAILY PO 09/07/24 10:00 09/07/24 09:52 81 MG Atorvastatin Calcium 40 mg HS PO 09/07/24 22:00 Losartan Potassium 50 mg DAILY PO 09/07/24 10:00 09/07/24 10:32 50 MG Heparin Sodium/ Dextrose 250 ml @ 14 mls/hr [id number] IV 09/07/24 09:00 09/07/24 08:55 14 MLS/HR Empaglifozin 10 mg DAILY PO 09/07/24 10:00 09/07/24 12:29 10 MG Metoprolol Succinate 50 mg DAILY PO 09/07/24 10:00 09/07/24 12:30 50 MG Examination: GENERAL:Normal, LUNGS:Normal, CVS:Normal, NEURO:Normal laboratory and microbiology Laboratory Tests 09/07/24 05:51 Test 09/07/24 05:51 Range/Units Serum Glucose 111 H 74-106 mg/dL Problem List/Assessment/Plan Problem List/Assessment/Plan NSTEMI, rule out coronary artery disease Chronic compensated HFpEF, NYHA class II Hypertension Dyslipidemia Hypokalemia, resolved Acute kidney injury, resolved History of tobacco use Obesity Plan/Recommendation (Dr. Proctor): * Echocardiogram reveals EF 50-55% with possible distal anteroseptal hypokinesis * Chest pain protocol * POLI score: 4 points * HEART score: 6 points (moderate score) * Heparin drip for ACS protocol * Lipid-lowering agent and single antiplatelet therapy * Cardiac surveillance * [facility] Case discussed with . Given the patient's clinical presentation, comorbidities, elevated troponin level, and elevated HEART/POLI score, the patient may benefit from coronary angiogram with left heart catheterization. The procedure was discussed with the patient in full detail including risks and benefits. Risks include but are not limited to bleeding, contrast-induced nephropathy, stroke, and even . The patient understands and is agreeable to undergo the procedure. Today, renal function has improved. Plans for coronary angiogram on 09/08/2024. Thank you for allowing us to care for this patient. Please call with any questions or concerns. This medical document was created using an electronic medical record system with voice recognition software and computerized dictation system. Although this document has been carefully reviewed, there might still be some phonetic and typographical errors. Occasional wrong-word or ``sound-alike substitutions may have occurred due to the inherent limitations of voice recognition software. These areas are purely typographical due to imperfections of the software programs and do not reflect any compromise in the patient's medical care. Please read the chart carefully and recognize, using context, where these substitutions have occurred. Plan discussed with: Patient Date of Service: Sep 07, 2024 Billing Provider: SAIRA PRAJAPATI Common Visit Codes: [id number] INP/OBS CARE(HIGH) SAIRA PRAJAPATI Sep 07, 2024 13:57
[2024-09-07 15:40] LABS: INR 1.02 (0.9-1.15); Prothrombin Time 10.8 sec (9.3-11.8)
--- NOTE | 2024-09-07 15:56 | CONS ---
Pharmacy Clinical Information: BOLUS NO TEMPLATE: SPOKE TO ESTUARDO BURNETT REGARDING HEPARIN DOSE CHANGE CURRENT DOSE: 1400 UNITS/HR CURRENT APTT: 38.0 ON 09/07/24 @1508 DATE AND TIME OF NEW STARTED: 09/07/24 @1513 NEXT APTT: 09/07/24 @2100 ESTUARDO BURNETT READ BACK NEW DOSE: 1600 UNITS/HR JERONIMO DUNN PHARMACIST Sep 07, 2024 15:56
[2024-09-07] MEDS: ATORVASTATIN 20 MG TAB PO SCH (21:14)
[2024-09-07 21:35] LABS: INR 1.03 (0.9-1.15); Partial Thromboplastin Time 64.6 SEC (24.5-34.5); Prothrombin Time 10.9 sec (9.3-11.8)
[2024-09-08] VITALS (13 sets, daily range): BP systolic 105–157; BP diastolic 58–71; PULSE 50–81; RESP 11–18; TEMP 97.4–98.4; O2SAT 93–97
[2024-09-08 03:16] LABS: Basophils # (auto) 0.1 10 ^3/uL (0-0.2); Basophils % (auto) 0.9 % (0.0-2.0); Eosinophils # (auto) 0.3 10 ^3/uL (0-0.8); Eosinophils % (auto) 3.6 % (0.0-7.0); Hematocrit 43.3 % (41.0-53.0); Hemoglobin 14.9 g/dL (13.5-17.5); Lymphocytes # (auto) 1.7 10 ^3/uL (0.4-5.4); Lymphocytes % (auto) 20.6 % (10.0-50.0); Mean Corpuscular Hemoglobin 31.1 pg (28.0-32.0); Mean Corpuscular Hgb Conc. 34.4 g/dL (32.0-36.0); Mean Corpuscular Volume 90.4 fL (80.0-100.0); Monocytes # (auto) 0.6 10 ^3/uL (0-1.3); Monocytes % (auto) 6.9 % (0.0-12.0); Neutrophils # (auto) 5.7 10 ^3/uL (1.6-8.6); Nucleated Red Blood Cells % 0.1 %; Platelet Count (auto) 239 10^3/uL (140-450); White Blood Cell 8.5 10^3/uL (4.4-10.8)
[2024-09-08 03:26] LABS: Chloride 104 mmol/L (98-107); Potassium 3.6 mmol/L (3.5-5.1); Sodium 140 mmol/L (136-145)
[2024-09-08 03:27] LABS: Anion Gap 6 (5-15); Carbon Dioxide 30 mmol/L (20-31)
[2024-09-08 03:32] LABS: BUN/Creatinine Ratio 17.5 (10.0-20.0); Blood Urea Nitrogen 21 mg/dL (9-23); Glucose 102 mg/dL (74-106)
[2024-09-08 03:39] LABS: INR 1.03 (0.9-1.15); Prothrombin Time 10.9 sec (9.3-11.8)
[2024-09-08 03:49] LABS: Partial Thromboplastin Time 73.2 SEC (24.5-34.5)
[2024-09-08 10:46] LABS: INR 1.04 (0.9-1.15); Partial Thromboplastin Time 68.3 SEC (24.5-34.5)
[2024-09-08] MEDS: IODIXANOL 320MG/ML 100ML BTL IV ONE (12:33)
[2024-09-08] MEDS: HEPARIN SODIUM (PORCINE) 5000 UNITS/ML 1ML VIAL ONE (12:48)
[2024-09-08] MEDS: fentaNYL CITRATE 100 MCG/2 ML VL ONE (12:48)
[2024-09-08] MEDS: VERAPAMIL 2.5MG/ML INJ 2ML VIAL IV ONE (12:48)
[2024-09-08] MEDS: MIDAZOLAM HCL 2MG/2ML 2ml VIAL (1mg/ml) ONE (12:49)
[2024-09-08] MEDS: LIDOCAINE 2%HCL (LOCAL ANESTH.) INJ 20ML MDV ONE (12:49)
[2024-09-08] MEDS: SODIUM CHL 0.9% 0 ML ONE (13:28)
[2024-09-08] MEDS: ANGIOMAX 250 MG VIAL IV ONE (13:28)
--- NOTE | 2024-09-08 14:15 | DVHOP2 ---
Operative Report - 2 Report Details Date: 09/08/24 Preop Diagnosis: CAD /acute coronary syndrome. Postop Diagnosis: Severe CAD. Surgeon: Adele Proctor MD Anesthesiologist: Conscious sedation Anesthesia: Mac, Local (Conscious sedation administered. I monitored the patient throughout the entirety of the procedure.) Consent: The patient was informed of the risks and benefits of the procedure. These include but are not limited to complications of anesthesia, postoperative infection, incomplete relief of symptoms, recurrence of symptoms, damage to blood vessels, nerves and tendons, deep venous thrombosis, pulmonary embolism and possible need for repeat surgery in the future. Complications: No complications. Findings: Severe CAD. Indications for Surgery: Chest pain. Acute coronary syndrome. Name of Procedure Performed Left heart catheterization bilateral cine coronary angiography. Left ventriculography. Procedure Details Procedure Details: Prior local anesthesia with 2% lidocaine to the right wrist and full informed consent obtained the patient was prepped and draped in usual fashion followed by placement of a six [place] sheath into the radial artery through which a Neil catheter was used for ventriculography and cannulation of both right and left coronary ostia without complications. Hemodynamics: Aortic blood pressure was 120/70. End-diastolic pressure was five. There was no gradient across the aortic valve on pullback. Coronary anatomy: The RCA is a nondominant vessel it has no stenosis in his proximal mid or distal segments. The left main is large and normal in its proximal midportion. There was a lesion in the distal segment of the left main involving the left anterior descending coronary artery with 99% stenosis of the ostium of the LAD extending into the proximal section. The LAD trifurcates into two diagonals and a large LAD. There is POLI one flow throughout this vessel. The circumflex has an ostial eccentric haziness. It also involves part of the distal left main. This is considered to be at least a 70% stenosis. Circumflex is dominant with two obtuse marginal branches and a posterolateral/PDA. Ventriculography in the STAHL projection shows an EF of about 45% with anterior hypokinesis. Impression: two-vessel coronary artery disease involving the left main circumflex and left anterior descending coronary arteries. Normal left ventricular end-diastolic pressure at rest. Mildly decreased left ventricular ejection fraction. Continue current medical care. Patient will require urgent revascularization. He will be referred to [place] for coronary bypass grafting of the LAD and circumflex distributions. Condition Fair Disposition Acute Care Facility Date of Service: Sep 08, 2024 Billing Provider: ADELE PROCTOR Sr., MD Cardiology Common Codes: [id number] INP/OBS CARE (High) Cardiology Procedure Codes: [id number] HEART CATH W/INTRA INJ ADELE PROCTOR Sr., MD Sep 08, 2024 14:15
[2024-09-08 17:14] LABS: INR 1.08 (0.9-1.15); Prothrombin Time 11.4 sec (9.3-11.8)
[2024-09-08 17:16] LABS: Partial Thromboplastin Time > 139.0 SEC (24.5-34.5)
--- NOTE | 2024-09-08 17:25 | CONS ---
Pharmacy Clinical Information: HEPARIN DRIP CURRENTLY HELD FOR 1 HR PER APTT > 139, TO BE RESUMED AT RATE 1300 UNITS/HR = 13 ML/HR CONFIRMED WITH [facility] NEXT APTT DRAW SCHEDULED FOR 09/09 @0030 PER RX PROTOCOL OSMAN DIXON PHARMACIST Sep 08, 2024 17:25
[2024-09-08] MEDS: HEPARIN DRIP/D5W 100UNITS/ML 250 ML IV SCH (18:44)
--- NOTE | 2024-09-08 20:40 | DVHDS2 ---
Discharge Summary Date of Admission Sep 06, 2024 at 07:47 Date of Discharge: Sep 08, 2024 Labs/Diagnostic Data: Laboratory Results Test 09/08/24 15:45 09/08/24 02:57 09/07/24 05:51 09/06/24 10:30 Prothrombin Time 11.4 sec (9.3-11.8) Prothrombin Time INR 1.08 (0.9-1.15) Activated Partial Thromboplast Time > 139.0 SEC (24.5-34.5) White Blood Count 8.5 10^3/uL (4.4-10.8) Red Blood Count 4.80 10^6/uL (4.5-5.90) Hemoglobin 14.9 g/dL (13.5-17.5) Hematocrit 43.3 % (41.0-53.0) Mean Corpuscular Volume 90.4 fL (80.0-100.0) Mean Corpuscular Hemoglobin 31.1 pg (28.0-32.0) Mean Corpuscular Hemoglobin Concent 34.4 g/dL (32.0-36.0) Red Cell Distribution Width 14.0 % (11.8-14.3) Platelet Count 239 10^3/uL (140-450) Mean Platelet Volume 8.1 fL (6.9-10.8) Neutrophils (%) (Auto) 68.0 % (37.0-80.0) Lymphocytes (%) (Auto) 20.6 % (10.0-50.0) Monocytes (%) (Auto) 6.9 % (0.0-12.0) Eosinophils (%) (Auto) 3.6 % (0.0-7.0) Basophils (%) (Auto) 0.9 % (0.0-2.0) Neutrophils # (Auto) 5.7 10 ^3/uL (1.6-8.6) Lymphocytes # (Auto) 1.7 10 ^3/uL (0.4-5.4) Monocytes # (Auto) 0.6 10 ^3/uL (0-1.3) Eosinophils # (Auto) 0.3 10 ^3/uL (0-0.8) Basophils # (Auto) 0.1 10 ^3/uL (0-0.2) Nucleated Red Blood Cells 0.1 % Sodium Level 140 mmol/L (136-145) Potassium Level 3.6 mmol/L (3.5-5.1) Chloride Level 104 mmol/L (98-107) Carbon Dioxide Level 30 mmol/L (20-31) Anion Gap 6 (5-15) Blood Urea Nitrogen 21 mg/dL (9-23) Creatinine 1.20 mg/dL (0.700-1.30) Glomerular Filtration Rate Calc 62 mL/min (>90) BUN/Creatinine Ratio 17.5 (10.0-20.0) Serum Glucose 102 mg/dL (74-106) Calcium Level 10.0 mg/dL (8.7-10.4) Phosphorus Level 3.7 mg/dL (2.4-5.1) Magnesium Level 2.1 mg/dL (1.6-2.6) Total Bilirubin 0.4 mg/dL (0.2-1.0) Aspartate Amino Transferase (AST) 24 U/L (13-40) Alanine Aminotransferase (ALT) 48 U/L (7-40) Alkaline Phosphatase 61 U/L (46-116) Total Protein 6.6 g/dL (5.7-8.2) Albumin 4.1 g/dL (3.2-4.8) Troponin I High Sensitivity 193 ng/L (</=54) Test 09/06/24 04:01 09/06/24 02:30 09/06/24 01:12 Thyroid Stimulating Hormone (TSH) 1.74 uIU/mL (0.55-4.78) Triglycerides Level 195 mg/dL (< 150) Cholesterol Level 146 mg/dL (< 200) LDL Cholesterol 107 mg/dL (< 100) HDL Cholesterol 28 mg/dL (40-59) Hemoglobin A1c 5.6 % A1C (<5.7) B-Type Natriuretic Peptide 23.08 pg/mL (0-100) Other Laboratory Tests 09/08/24 02:57 Brief Hx & Hospital Course: 79 yo M with chest pain. Chest pain started from a while back, lasts 2 minutes, resolved on its own, however on wednesday started to have similar chest pain that lasts 20 minutes. Currently no acive chest pain. 20PY tobacco history. Hx of prostate cancer, had radiation and surgery, no chemo. at home taking alupurinol, omepraole, simvastatin, chlorthalidone, losartan, metop tartrate, gabapentin, naproxen, sildenafil. ET decreased to half block the past month. Had prior cath 12 years ago with no significant stenosis per aptient. seen by cardio, for [facility], which showed distal left main/LAD lession and circ. Patient to be transferred to [facility] for CABG. discussed with patient. c/w heparin drip in the interim Condition at Discharge: Fair Final Diagnosis/Problems List Severe CAD. Discharge Disposition: Acute Care Facility Discharge Statement: "Patient was advised to return to the ER or call 911 if any headaches, dizziness, shortness of breath, chest pain, abdominal pain, bleeding, fevers, or worsening of medical condition. Patient was counseled about treatment plan, medications, possible side effects, patientverbalized understanding. All questions were answered to the best of my ability. This discharge took greater then 30 minutes in planning, reviewing documentation, counseling the patient, and discussing with other team members." ASSESSMENT ASSESSMENT Assessment NSTEMI s/p [facility] - LM/LAD + LCx stenosis Severe CAD HTN HLD Hypokalemia resolved Ex smoker Obesity hx of prostate cancer s/p ressection and radiation ED HFpEF NYHA class II acute? diastolic heart failure possible sleep apnea Date of Service: Sep 08, 2024 Billing Provider: MIKE SOLARES MD Common Visit Codes: [id number] INP/OBS CARE(HIGH) MIKE SOLARES MD Sep 08, 2024 20:40
[2024-09-09] VITALS (8 sets, daily range): BP systolic 102–127; BP diastolic 56–67; PULSE 50–68; RESP 14–17; TEMP 97.5–98.1; O2SAT 92–96
[2024-09-09 01:00] LABS: INR 1.03 (0.9-1.15); Partial Thromboplastin Time 58.2 SEC (24.5-34.5); Prothrombin Time 10.9 sec (9.3-11.8)
[2024-09-09 05:51] LABS: Basophils # (auto) 0 10 ^3/uL (0-0.2); Basophils % (auto) 0.4 % (0.0-2.0); Eosinophils # (auto) 0.4 10 ^3/uL (0-0.8); Eosinophils % (auto) 3.7 % (0.0-7.0); Hematocrit 44.9 % (41.0-53.0); Hemoglobin 15.2 g/dL (13.5-17.5); Lymphocytes # (auto) 1.5 10 ^3/uL (0.4-5.4); Lymphocytes % (auto) 15.7 % (10.0-50.0); Mean Corpuscular Hemoglobin 30.5 pg (28.0-32.0); Mean Corpuscular Hgb Conc. 33.8 g/dL (32.0-36.0); Monocytes # (auto) 0.8 10 ^3/uL (0-1.3); Monocytes % (auto) 7.7 % (0.0-12.0); Neutrophils # (auto) 7.1 10 ^3/uL (1.6-8.6); Neutrophils % (auto) 72.5 % (37.0-80.0); Platelet Count (auto) 253 10^3/uL (140-450); Red Blood Cells 4.99 10^6/uL (4.5-5.90); Red Cell Distribution Width 14.5 % (11.8-14.3); White Blood Cell 9.8 10^3/uL (4.4-10.8)
[2024-09-09 08:03] LABS: INR 1.03 (0.9-1.15); Partial Thromboplastin Time 50.9 SEC (24.5-34.5); Prothrombin Time 10.9 sec (9.3-11.8)
--- NOTE | 2024-09-09 12:43 | DVHPN2 ---
Consult Progress Note Subjective Patient reports: Feels better Review of Systems: CVS:Normal (Denies active or overnight cardiac symptoms of CP, Palpitaitons or SOB.) Objective vital signs Vital Sign Date Time Temp Pulse Resp B/P (MAP) Pulse Ox O2 Delivery O2 Flow Rate FiO2 09/09/24 10:00 50 09/09/24 09:36 127/67 09/09/24 08:33 97.9 16 96 97.9 09/09/24 07:57 Nasal Cannula* 2 28 Total Intake and Output 09/08/24 09/08/24 09/09/24 15:00 23:00 07:00 Intake Total 400 ml 100 ml Balance 400 ml 100 ml medications Current Medications Medications Dose Ordered Sig/Woody Route Start Time Stop Time Status Last Admin Dose Admin Acetaminophen 650 mg Q6HP PRN PO 09/06/24 08:00 Magnesium Oxide 400 mg DAILY PO 09/06/24 10:00 09/09/24 09:29 400 MG Chlorthalidone 25 mg DAILY PO 09/07/24 10:00 09/09/24 09:32 25 MG Gabapentin 300 mg BID PO 09/06/24 22:00 09/09/24 09:28 300 MG Naproxen 500 mg BID PRN PO 09/06/24 15:00 Hold Allopurinol 300 mg DAILY PO 09/07/24 10:00 09/09/24 09:36 300 MG Pantoprazole Sodium 40 mg DAILY PO 09/07/24 10:00 09/09/24 09:32 40 MG Aspirin 81 mg DAILY PO 09/07/24 10:00 09/09/24 09:36 81 MG Atorvastatin Calcium 40 mg HS PO 09/07/24 22:00 09/08/24 21:24 40 MG Losartan Potassium 50 mg DAILY PO 09/07/24 10:00 09/09/24 09:36 50 MG Empaglifozin 10 mg DAILY PO 09/07/24 10:00 09/09/24 09:29 10 MG Metoprolol Succinate 50 mg DAILY PO 09/07/24 10:00 09/08/24 10:39 50 MG Heparin Sodium/ Dextrose 250 ml @ 13 mls/hr [id number] IV 09/08/24 18:20 09/09/24 02:24 13 MLS/HR Examination: CVS:Normal (Telemetry reviewed, consistent with sinus rhythm at 60 beats per minute.) laboratory and microbiology Laboratory Tests 09/09/24 04:20 09/08/24 02:57 Test 09/08/24 02:57 Range/Units Serum Glucose 102 74-106 mg/dL Problem List/Assessment/Plan Problem List/Assessment/Plan NSTEMI, Left main disease Chronic compensated HFpEF, NYHA class II Hypertension Dyslipidemia Hypokalemia, resolved Acute kidney injury, resolved History of tobacco use Obesity Plan/Recommendation (Dr. Proctor): * Echocardiogram reveals EF 50-55% with possible distal anteroseptal hypokinesis * Chest pain protocol * POLI score: 4 points * HEART score: 6 points (moderate score) * Heparin drip for ACS protocol * Lipid-lowering agent and single antiplatelet therapy * Cardiac surveillance * [facility] Case discussed with . S/p coronary angiogram showing distal left main disease at least 70% stenosis no other significant stenosis noted. Continue heparin drip, planned higher level of care transfer for possible CABG. Plan of care discussed with patient, all questions answered. Thank you for allowing us to care for this patient. Please call with any questions or concerns. Plan discussed with: Patient Dietary Evaluation Review Comments: 1) Advance to cardiac diet as medically feasible 2) Refer Ux Interaction Designer on DC for weight management 3) Continue current plan of care Expected Outcomes/Goals: Pt will meet >75% estimated needs Fu 2-3 days Date of Service: Sep 09, 2024 Billing Provider: BOUBACAR MARTINEZ Common Visit Codes: [id number] INP/OBS CARE(HIGH) BOUBACAR MARTINEZ Sep 09, 2024 12:43
[2024-09-09 14:05] LABS: INR 1.05 (0.9-1.15); Partial Thromboplastin Time 48.1 SEC (24.5-34.5); Prothrombin Time 11.1 sec (9.3-11.8)
--- NOTE | 2024-09-09 14:53 | DVHPN2 ---
Assessment/Plan Assessment/Plan Progress note 79 yo M with chest pain. Chest pain started from a while back, lasts 2 minutes, resolved on its own, however on wednesday started to have similar chest pain that lasts 20 minutes. Currently no acive chest pain. 20PY tobacco history. Hx of prostate cancer, had radiation and surgery, no chemo. at home taking alupurinol, omepraole, simvastatin, chlorthalidone, losartan, metop tartrate, gabapentin, naproxen, sildenafil. ET decreased to half block the past month. Had prior cath 12 years ago with no significant stenosis per aptient. [facility] with LM/ostial LAD and LCx. HLOC transfer. on heparin drip. Seen today during rounds. pending bed and acceptance for HLOC CABG Physical exam alert oriented x3 clear breath sound s1 s2 rrr no murmur no chest wall tenderness abdomen soft nontender no LE edema Labs ekg imaging reviewed Assessment and plan NSTEMI CAD s/p C LM/LAD and LCx stenosis HTN HLD Hypokalemia resolved Ex smoker Obesity hx of prostate cancer s/p ressection and radiation ED HFpEF NYHA class II acute? diastolic heart failure possible sleep apnea Admit to telemetry cardio consult appreciated echo done resume home meds asa, statin c/w heparin drip [facility] done HLOC for CBAG strict i&O daily weights outpatient sleep study after DC Diet cardiac DVT ppx on heparin drip Code status full code Plan discussed with: Patient My Orders Orders - MIKE SOLARES MD Procedure Category Date Status Time Cardiac DIET 09/08/24 Transmitted Diet-2gna,Lofat,Lochol Dinner Discharge DISCHARGE 09/08/24 Transmitted 20:40 Imaging Transfer ORDERS 09/09/24 Transmitted Request 12:21 Date of Service: Sep 09, 2024 Billing Provider: MIKE SOLARES MD Common Visit Codes: [id number] INP/OBS CARE(HIGH) MIKE SOLARES MD Sep 09, 2024 14:53
[2024-09-09] MEDS: HEPARIN DRIP/D5W 100UNITS/ML 250 ML IV SCH (15:49)
--- NOTE | 2024-09-09 16:07 | CONS ---
Pharmacy Clinical Information: NO BOLUS TEMPLATE: SPOKE TO VICTORINO BURNETT REGARDING HEPARIN DOSE CHANGE CURRENT DOSE: 1300 UNITS/HR CURRENT APTT: 48.1 ON 09/09/24 @1335 INCREASE (NEW DOSE): 1500 UNITS/HR DATE AND TIME OF NEW STARTED: 09/09/24 @1549 NEXT APTT: 09/09/24 @2200 VICTORINO BURNETT READ BACK NEW DOSE: 1500 UNITS/HR JERONIMO DUNN PHARMACIST Sep 09, 2024 16:07
[2024-09-09] MEDS ORDERED: NITROGLYCERIN 0.4 MG SL TAB SL PRN (21:45)
[2024-09-09] MEDS: MORPHINE SULFATE INJ 2 MG/ml SYRG IV PRN (22:04)
[2024-09-09 22:23] LABS: INR 1.04 (0.9-1.15); Partial Thromboplastin Time 55.8 SEC (24.5-34.5)
[2024-09-10] VITALS (7 sets, daily range): BP systolic 100–127; BP diastolic 58–67; PULSE 55–68; RESP 16–17; TEMP 97–98.4; O2SAT 91–97
[2024-09-10 05:44] LABS: Basophils # (auto) 0.1 10 ^3/uL (0-0.2); Basophils % (auto) 0.9 % (0.0-2.0); Eosinophils # (auto) 0.5 10 ^3/uL (0-0.8); Eosinophils % (auto) 5.7 % (0.0-7.0); Hematocrit 42.8 % (41.0-53.0); Hemoglobin 14.9 g/dL (13.5-17.5); Lymphocytes # (auto) 1.6 10 ^3/uL (0.4-5.4); Lymphocytes % (auto) 19.6 % (10.0-50.0); Mean Corpuscular Hemoglobin 31.5 pg (28.0-32.0); Mean Corpuscular Hgb Conc. 34.8 g/dL (32.0-36.0); Mean Corpuscular Volume 90.6 fL (80.0-100.0); Monocytes # (auto) 0.7 10 ^3/uL (0-1.3); Monocytes % (auto) 9.1 % (0.0-12.0); Neutrophils # (auto) 5.2 10 ^3/uL (1.6-8.6); Neutrophils % (auto) 64.7 % (37.0-80.0); Platelet Count (auto) 229 10^3/uL (140-450); Red Blood Cells 4.72 10^6/uL (4.5-5.90); Red Cell Distribution Width 14.2 % (11.8-14.3)
[2024-09-10 05:57] LABS: INR 1.06 (0.9-1.15); Partial Thromboplastin Time 64.2 SEC (24.5-34.5); Prothrombin Time 11.2 sec (9.3-11.8)
[2024-09-10 07:50] LABS: Anion Gap 8 (5-15); Carbon Dioxide 26 mmol/L (20-31); Chloride 103 mmol/L (98-107); Potassium 3.5 mmol/L (3.5-5.1); Sodium 137 mmol/L (136-145)
[2024-09-10 07:51] LABS: Calcium 9.9 mg/dL (8.7-10.4)
[2024-09-10 07:56] LABS: BUN/Creatinine Ratio 17.5 (10.0-20.0); Blood Urea Nitrogen 22 mg/dL (9-23); Glucose 110 mg/dL (74-106); Magnesium 2.2 mg/dL (1.6-2.6)
[2024-09-10 11:50] LABS: INR 1.05 (0.9-1.15); Partial Thromboplastin Time 55.9 SEC (24.5-34.5); Prothrombin Time 11.1 sec (9.3-11.8)
--- NOTE | 2024-09-10 12:55 | DVHPN2 ---
Consult Progress Note Subjective Review of Systems: CVS:Abnormal (Chest Pain) Objective vital signs Vital Sign Date Time Temp Pulse Resp B/P (MAP) Pulse Ox O2 Delivery O2 Flow Rate FiO2 09/10/24 12:26 127/67 09/10/24 09:04 98.4 55 16 96 98.4 09/10/24 08:00 Nasal Cannula* 2 28 Total Intake and Output 09/09/24 09/09/24 09/10/24 15:00 23:00 07:00 Intake Total 800 ml 500 ml Balance 800 ml 500 ml medications Current Medications Medications Dose Ordered Sig/Woody Route Start Time Stop Time Status Last Admin Dose Admin Acetaminophen 650 mg Q6HP PRN PO 09/06/24 08:00 Magnesium Oxide 400 mg DAILY PO 09/06/24 10:00 09/10/24 09:32 400 MG Chlorthalidone 25 mg DAILY PO 09/07/24 10:00 09/10/24 12:25 25 MG Gabapentin 300 mg BID PO 09/06/24 22:00 09/10/24 09:32 300 MG Naproxen 500 mg BID PRN PO 09/06/24 15:00 Hold Allopurinol 300 mg DAILY PO 09/07/24 10:00 09/10/24 09:32 300 MG Pantoprazole Sodium 40 mg DAILY PO 09/07/24 10:00 09/10/24 09:32 40 MG Aspirin 81 mg DAILY PO 09/07/24 10:00 09/10/24 09:33 81 MG Atorvastatin Calcium 40 mg HS PO 09/07/24 22:00 09/09/24 22:02 40 MG Losartan Potassium 50 mg DAILY PO 09/07/24 10:00 09/10/24 12:26 50 MG Empaglifozin 10 mg DAILY PO 09/07/24 10:00 09/10/24 09:33 10 MG Metoprolol Succinate 50 mg DAILY PO 09/07/24 10:00 09/08/24 10:39 50 MG Heparin Sodium/ Dextrose 250 ml @ 15 mls/hr [id number] IV 09/09/24 14:45 09/09/24 15:49 15 MLS/HR Nitroglycerin 0.4 mg Q5MINP PRN SL 09/09/24 21:45 Morphine Sulfate 2 mg Q30M PRN IV 09/09/24 21:45 09/10/24 06:23 2 MG Examination: CVS:Normal, CVS:Abnormal (Telemetry consistent with sinus rhythma t 60 bpm) laboratory and microbiology Laboratory Tests 09/10/24 05:14 Test 09/10/24 05:14 Range/Units Serum Glucose 110 H 74-106 mg/dL Problem List/Assessment/Plan Problem List/Assessment/Plan NSTEMI, Left main disease Chronic compensated HFpEF, NYHA class II Hypertension Dyslipidemia Hypokalemia, resolved Acute kidney injury, resolved History of tobacco use Obesity Plan/Recommendation (Dr. Proctor): * Echocardiogram reveals EF 50-55% with possible distal anteroseptal hypokinesis * Chest pain protocol * POLI score: 4 points * HEART score: 6 points (moderate score) * Heparin drip for ACS protocol * Lipid-lowering agent and single antiplatelet therapy * Cardiac surveillance * [facility] Case discussed with . S/p coronary angiogram showing distal left main disease at least 70% stenosis no other significant stenosis noted. Continue heparin drip, planned higher level of care transfer for possible CABG. Plan of care discussed with patient, all questions answered. Patient noted to have episode of chest pain this morning, atypical, continue on heparin drip. Awaiting transfer HLOC. Chest pain-free upon examination. Thank you for allowing us to care for this patient. Please call with any questions or concerns. Plan discussed with: Patient Dietary Evaluation Review Comments: 1) Advance to cardiac diet as medically feasible 2) Refer Delivery Room Supervisor on DC for weight management 3) Continue current plan of care Expected Outcomes/Goals: Pt will meet >75% estimated needs Fu 2-3 days Date of Service: Sep 10, 2024 Billing Provider: BOUBCAAR MARTINEZ Common Visit Codes: [id number] INP/OBS CARE(HIGH) BOUBACAR MARTINEZ Sep 10, 2024 12:55
--- NOTE | 2024-09-10 14:18 | CONS ---
Pharmacy Clinical Information: PLEASE CONTINUE HEPARIN DRIP AT RATE 1500 UNITS/HR = 15 ML/HR PER APTT OF 55.9 (THERAPEUTIC) THIRD CONSECUTIVE THERAPEUTIC APTT ==> CHANGE TO DAILY APTT NEXT APTT DRAW SCHEDULED FOR 09/11 WITH AM LABS PER RX PROTOCOL OSMAN DIXON PHARMACIST Sep 10, 2024 14:18
--- NOTE | 2024-09-10 18:40 | DVHPN2 ---
Assessment/Plan Assessment/Plan Progress note 79 yo M with chest pain. Chest pain started from a while back, lasts 2 minutes, resolved on its own, however on wednesday started to have similar chest pain that lasts 20 minutes. Currently no acive chest pain. 20PY tobacco history. Hx of prostate cancer, had radiation and surgery, no chemo. at home taking alupurinol, omepraole, simvastatin, chlorthalidone, losartan, metop tartrate, gabapentin, naproxen, sildenafil. ET decreased to half block the past month. Had prior cath 12 years ago with no significant stenosis per aptient. [facility] with LM/ostial LAD and LCx. HLOC transfer. on heparin drip. Seen today during rounds. accepted to [facility], pending transfer Physical exam alert oriented x3 clear breath sound s1 s2 rrr no murmur no chest wall tenderness abdomen soft nontender no LE edema Labs ekg imaging reviewed Assessment and plan NSTEMI CAD s/p C LM/LAD and LCx stenosis HTN HLD Hypokalemia resolved Ex smoker Obesity hx of prostate cancer s/p ressection and radiation ED HFpEF NYHA class II acute? diastolic heart failure possible sleep apnea Admit to telemetry cardio consult appreciated echo done resume home meds asa, statin c/w heparin drip [facility] done HLOC for CBAG strict i&O daily weights outpatient sleep study after DC Diet cardiac DVT ppx on heparin drip Code status full code Plan discussed with: Patient My Orders Orders - MIKE SOLARES MD Procedure Category Date Status Time Discharge DISCHARGE 09/10/24 Transmitted 15:18 Date of Service: Sep 10, 2024 Billing Provider: MIKE SOLARES MD Common Visit Codes: [id number] INP/OBS CARE(HIGH) MIKE SOLARES MD Sep 10, 2024 18:40
== END 2024-09-10 18:40 | disposition short-term general hospital (02) | DRG 280 ==
LOC: ER 00:10 → EDBD 00:10 → OVERFLOW 07:47 → TELE-WESTW 12:28
PROVIDERS: ADMIT Student in an Organized Health Care Education/Training Program; ATTEND Student in an Organized Health Care Education/Training Program
PROC: B211YZZ Fluoroscopy of Multiple Coronary Arteries using Other Contrast (ICD-10-PCS; principal; 2024-09-08)
PROC: B215YZZ Fluoroscopy of Left Heart using Other Contrast (ICD-10-PCS; 2024-09-08)
PROC: 4A023N7 Measurement of Cardiac Sampling and Pressure, Left Heart, Percutaneous Approach (ICD-10-PCS; 2024-09-08)
DX: I21.4 Non-ST elevation (NSTEMI) myocardial infarction (principal); I50.31 Acute diastolic (congestive) heart failure; N17.9 Acute kidney failure, unspecified; I47.10 Supraventricular tachycardia, unspecified; I25.10 Atherosclerotic heart disease of native coronary artery without angina pectoris; E87.6 Hypokalemia; E66.9 Obesity, unspecified; K21.9 Gastro-esophageal reflux disease without esophagitis; E78.5 Hyperlipidemia, unspecified; E78.00 Pure hypercholesterolemia, unspecified; I11.0 Hypertensive heart disease with heart failure; Z79.82 Long term (current) use of aspirin; Z79.899 Other long term (current) drug therapy; Z85.46 Personal history of malignant neoplasm of prostate; Z68.31 Body mass index [BMI] 31.0-31.9, adult; Z87.891 Personal history of nicotine dependence; Z95.1 Presence of aortocoronary bypass graft; Z92.3 Personal history of irradiation
CPT/HCPCS: 36415; 71045; 80048; 80053; 80061; 83036; 83735; 83880; 84100; 84132; 84443; 84484; 85025; 85610; 85730; 93005; 93306; 93458; 99152; 99291; G0378; J2250; Q9967

== ENCOUNTER 2024-10-03 10:55 | Inpatient (IN) | payer OTHER, MEDICARE ==
[~2024-10-03] VITALS: Ht 180.3 cm; Wt 100.0 kg
[~2024-10-03 10:55] MED LIST changes: +ALLO300T2 PO; -ASPI300S PR; +CHLO25TA2 PO; +DIPH25CA66 PO; -DOXA1TAB50 PO; +GABA-1250 PO; +GARL400T9 PO; -LIS10T PO; +LOSA-533 PO; +MAGN250T3 PO; -MAGN400C3 PO; -METO25TA36 PO; +METO25TA5 PO; -MULT-839 PO; +NAP500T PO; -NIAC250C16 PO; -OMEG-20 PO; +OMEP1CAP70 PO; -OMEP20CA74 PO; +POTA-36 PO; -POTA80TA PO; +SIMV40TA18 PO; -SIMV80TA17 PO; -[UNRECOGNIZED DRUG - CODE] EX
--- NOTE | 2024-10-03 11:17 | ED.PDOC ---
HPI Comments 79 year old male presents to the ED with a chief complaint of chest pain onset 4 days. Patient was discharged from [facility] 09/10/24, had CABG at [facility] in [place], [place] on 09/11/24, was discharged about 2 weeks ago. For the past 4 days, patient has been experiencing chest pain, increases with deep breaths, as well as shortness of breath, cough, poor appetite. [facility] home health nurse told him he had a low grade fever yesterday. Denies nausea, vomiting, diarrhea, dizziness , headache, blurry vision, dysuria, abdominal pain. No other symptoms or modifying factors present at this time. Chief Complaint: Chest Pain Time Seen by MD: 11:00 Primary Care Provider: [facility] Reviewed Notes: Nurses Notes (No allergies), Medications, Allergies Allergies: Coded Allergies: NO KNOWN ALLERGIES (Unverified , 03/23/13) Home Meds Reported Medications Diphenhydramine Hcl (Benadryl Allergy) 25 Mg Cap, 50 MG PO QPM, CAP 09/07/24 Allium Sativan Extract (Garlic) 2,000 Mg Tab, 1000 MG PO QAM 09/07/24 Magnesium (Magnesium 250 mg) 1 Tab Tab, 1 TAB PO QPM, TAB 09/07/24 Naproxen (NAPROSYN TABLET) 500 Mg Tb, 1 TAB PO BID PRN, #60 TAB 1 Refill 09/06/24 Gabapentin (Gabapentin) 300 Mg Cap, 1 CAP PO BID, #90 CAP 5 Refills 09/06/24 Potassium Chloride (POTASSIUM CHLORIDE CR) 10 Meq Tb, 1 TAB PO DAILY, #30 TAB 5 Refills 09/06/24 Metoprolol Tartrate (Metoprolol Tartrate) 25 Mg Tab, 12.5 MG PO BID, TAB 09/06/24 Losartan Potassium (Losartan Potassium) 25 Mg Tab, 1 TAB PO BID, #90 TAB 1 Refill 09/06/24 Chlorthalidone (Chlorthalidone) 25 Mg Tab, 25 MG PO DAILY, TAB 09/06/24 Simvastatin (Simvastatin) 40 Mg Tab, 1 TAB PO QPM, #30 TAB 5 Refills 09/06/24 Omeprazole (Omeprazole Dr) 20 Mg Cap, 20 MG PO DAILY, CAP 09/06/24 Allopurinol (Allopurinol) 300 Mg Tab, 300 MG PO DAILY, TAB 09/06/24 Information Source: Patient Mode of Arrival: Ambulatory Severity: Moderate Timing: Hours Duration: Since onset Prehospital treatment: None Location: Chest (R) Radiation: No Radiation Quality: Sharp Onset: At Rest Cardiac Risk Factors: Hyperlipidemia, HTN PE Risk Factors: Recent Surgery (CABG) History of: Similar pain in past, LA Modifying Factors: Nothing Associated Signs and Symptoms: SOB Past Medical History PAST MEDICAL HISTORY: Cancer, High Lipids, HTN, LA Surgical History: CABG (09/11/24) Family History Family History: No family hx of Cancer, No family hx of DM Social History Smoker: Non-Smoker Alcohol: Denies ETOH Use Drugs: Denies Drug Use Lives In: Home Constitutional: reports: fever; denies: chills, diaphoresis, fatigue, malaise, sweats, weakness, others EENTM: denies: blurred vision, double vision, ear bleeding, ear discharge, ear drainage, ear pain, ear ringing, eye pain, eye redness, hearing loss, mouth pain, mouth swelling, nasal discharge, nose bleeding, nose congestion, nose pain, photophobia, tearing, throat pain, throat swelling, voice changes, others Respiratory: reports: cough, shortness of breath; denies: hemoptysis, o rthopnea, SOB at rest, SOB with excertion, stridor, wheezing, others Cardiovascular: reports: chest pain; denies: dizzy spells, diaphoresis, Dyspnea on exertion, edema, irregular heart beat, left arm pain, lightheadedness, palpitations, PND, syncope, others Gastrointestinal: reports: poor appetite; denies: abdomen distended, abdominal pain, blood streaked bowels, constipated, diarrhea, dysphagia, difficulty swallowing, hematemesis, melena, nausea, poor fluid intake, rectal bleeding, rectal pain, vomiting, others Genitourinary: denies: burning, dysuria, flank pain, frequency, hematuria, incontinence, penile discharge, penile sore, pain, testicle pain, testicle swelling, urgency, others Neurological: denies: dizziness, fainting, headache, left sided numbness, left sided weakness, numbness, paresthesia, pre-existing deficit, right sided numbness, right sided weakness, seizure, speech problems, tingling, tremors, weakness, others Musculoskeletal: denies: back pain, gout, joint pain, joint swelling, muscle pain, muscle stiffness, neck pain, others Integumetry: denies: bruises, change in color, change in hair/nails, dryness, laceration, lesions, lumps, rash, wounds, others Allergic/Immunocompromised: denies: Difficulty Healing, Frequent Infections, Hives, Itching, others Hematologic/Lymphatic: denies: anemia, blood clots, easy bleeding, easy bruising, swollen glands, others Endocrine: denies: excessive hunger, excessive sweating, excessive thirst, excessive urination, flushing, intolerance to cold, intolerance to heat, unexplained weight gain, unexplained weight loss, others Psychiatric: denies: anxiety, bipolar disorder, depression, hopeless, panic disorder, schizophrenia, sleepless, suicidal, others All Other Systems: Reviewed and Negative Physical Exam General Appearance: Moderate Distress HEENT: Normal ENT Inspection, Pharynx Normal, TMs Normal Neck: Full Range of Motion, Non-Tender, Normal, Normal Inspection Respiratory: Chest Non-Tender, Lungs Clear, No Accessory Muscle Use, No Respiratory Distress, Normal Breath Sounds Cardiovascular: No Edema, No JVD, No Murmur, No Gallop, Normal Peripheral Pulses, Regular Rate/Rhythm, Other (The wound looks clean with Steri-Strips to the area on the mid chest) Breast Exam: Deferred Gastrointestinal: No Organomegaly, Non Tender, No Pulsatile Mass, Normal Bowel Sounds, Soft Genitalia: Deferred Pelvic: Deferred Rectal: Deferred Extremities: No calf tenderness, Normal capillary refill, Normal inspection, Normal range of motion, Non-tender, No pedal edema Musculoskeletal : Apperance: Normal Neurologic: Alert, gravity prospector II-XII nml as Tested, No Motor Deficits, Normal Affect, Normal Mood, No Sensory Deficits Cerebellar Function: Normal Reflexes: Normal Skin: Dry, Normal Color, Warm Lymphatic: No Adenopathy EKG EKG : Pulse Rate (adult): 101 Cardiac Rhythm: ST Was a procedure done? Was a procedure done?: No CP Differential Dx Differential Diagnosis: Angina, LA, Pulmonary Embolus Differential Diagnosis: CHF Differential Diagnosis: Pericarditis X-Ray, Labs, Meds, VS Vital Signs Date Time Temp Pulse Resp B/P (MAP) Pulse Ox O2 Delivery O2 Flow Rate FiO2 10/03/24 12:00 98.9 100 18 137/71 (93) 95 98.9 10/03/24 12:00 95 18 95 Room Air 10/03/24 11:58 105 10/03/24 11:17 101 10/03/24 11:10 99.2 105 19 132/76 (94) 94 99.2 10/03/24 11:02 101 Lab Test 10/03/24 12:42 10/03/24 11:08 Range/Units Troponin I High Sensitivity Pending 9 </=54 ng/L White Blood Count 10.0 4.4-10.8 10^3/uL Red Blood Count 3.92 L 4.5-5.90 10^6/uL Hemoglobin 11.8 L 13.5-17.5 g/dL Hematocrit 34.5 L 41.0-53.0 % Mean Corpuscular Volume 87.9 80.0-100.0 fL Mean Corpuscular Hemoglobin 30.1 28.0-32.0 pg Mean Corpuscular Hemoglobin Concent 34.2 32.0-36.0 g/dL Red Cell Distribution Width 14.4 H 11.8-14.3 % Platelet Count 349 140-450 10^3/uL Mean Platelet Volume 7.7 6.9-10.8 fL Neutrophils (%) (Auto) 84.0 H 37.0-80.0 % Lymphocytes (%) (Auto) 7.2 L 10.0-50.0 % Monocytes (%) (Auto) 7.7 0.0-12.0 % Eosinophils (%) (Auto) 0.7 0.0-7.0 % Basophils (%) (Auto) 0.4 0.0-2.0 % Neutrophils # (Auto) 8.4 1.6-8.6 10 ^3/uL Lymphocytes # (Auto) 0.7 0.4-5.4 10 ^3/uL Monocytes # (Auto) 0.8 0-1.3 10 ^3/uL Eosinophils # (Auto) 0.1 0-0.8 10 ^3/uL Basophils # (Auto) 0 0-0.2 10 ^3/uL Nucleated Red Blood Cells 0.0 % Sodium Level 137 136-145 mmol/L Potassium Level 3.6 3.5-5.1 mmol/L Chloride Level 102 98-107 mmol/L Carbon Dioxide Level 24 20-31 mmol/L Anion Gap 11 5-15 Blood Urea Nitrogen 15 9-23 mg/dL Creatinine 1.06 0.700-1.30 mg/dL Glomerular Filtration Rate Calc 72 >90 mL/min BUN/Creatinine Ratio 14.2 10.0-20.0 Serum Glucose 158 H 74-106 mg/dL Calcium Level 9.5 8.7-10.4 mg/dL The patient's CBC shows anemia with a hemoglobin of 11.8 hematocrit of 34.5 The chemistry panel is within normal limits The patient was glucose is 158 The chest x-ray is negative At this time, the patient was being admitted to the hospitalist IV Hep-Lock was established Images Reviewed?: Images reviewed and evaluated by me Time of 1ST Reevaluation: 11:30 Reevaluation 1ST: Unchanged Patient Education/Counseling: Diagnosis, Treatment, Prognosis Family Education/Counseling: No Family Present Additional Information The following tests were ordered, and results were reviewed by me: TROP-x3, EKG -x3, CBC, XY CHEST 2 VIEWS, BMP, UA I reviewed and agreed with the following test results read by other providers: XY CHEST 2 VIEWS I discussed treatment and results with medical personnel and: patient Comprehensive systems review obtained and negative except for what is stated in the HPI. Departure 1 Departure Time of Disposition: 13:22 Impression: Primary Impression: Acute chest pain Additional Impression: Status post aorto-coronary artery bypass graft Disposition: ADMITTED INPATIENT Admit to: Tele Condition: Fair Critical Care Note Critical Care Time?: Yes (45 min-critical care time only) Stability Stability form required: Yes Unstable for transfer: Telemetry monitoring (Telemetry monitoring required), ED Physician Assesment (Clinical assesment) Heart Score Heart Score: Heart Score Response (Comments) Value History Moderate Suspicious 1 EKG Repolarization Disturb 1 Age >65 2 Risk Factors >3 or Hx ASHD 2 Troponin Normal limit 0 Total 6 I personally scribed for NINI BIANCHI MD ([email or web address]) on 10/03/24 at 11:17. Electronically submitted by Sharon Montano ([email or web address]). I personally scribed for NINI BIANCHI MD ([email or web address]) on 10/03/24 at 11:18. Electronically submitted by Sharon Montano ([email or web address]). NINI BIANCHI MD Oct 03, 2024 11:17
[2024-10-03 11:31] LABS: Basophils # (auto) 0 10 ^3/uL (0-0.2); Basophils % (auto) 0.4 % (0.0-2.0); Eosinophils # (auto) 0.1 10 ^3/uL (0-0.8); Eosinophils % (auto) 0.7 % (0.0-7.0); Hematocrit 34.5 % (41.0-53.0); Hemoglobin 11.8 g/dL (13.5-17.5); Lymphocytes # (auto) 0.7 10 ^3/uL (0.4-5.4); Lymphocytes % (auto) 7.2 % (10.0-50.0); Mean Corpuscular Hemoglobin 30.1 pg (28.0-32.0); Mean Corpuscular Hgb Conc. 34.2 g/dL (32.0-36.0); Mean Corpuscular Volume 87.9 fL (80.0-100.0); Monocytes # (auto) 0.8 10 ^3/uL (0-1.3); Monocytes % (auto) 7.7 % (0.0-12.0); Neutrophils # (auto) 8.4 10 ^3/uL (1.6-8.6); Platelet Count (auto) 349 10^3/uL (140-450); Red Blood Cells 3.92 10^6/uL (4.5-5.90); Red Cell Distribution Width 14.4 % (11.8-14.3)
[2024-10-03 11:35] LABS: Anion Gap 11 (5-15); Carbon Dioxide 24 mmol/L (20-31); Chloride 102 mmol/L (98-107); Potassium 3.6 mmol/L (3.5-5.1); Sodium 137 mmol/L (136-145)
[2024-10-03 11:36] LABS: Calcium 9.5 mg/dL (8.7-10.4)
--- NOTE | 2024-10-03 11:40 | DVH ---
XY CHEST TWO VIEWS ROUTINE CLINICAL HISTORY: cp COMPARISON: None TECHNIQUE: Frontal and lateral view of the chest was obtained FINDINGS: Lines and Tubes: None Lungs: No focal consolidation. Pleura: No effusion. No pneumothorax. Cardiomediastinal contours: Unremarkable Bones: No acute osseous abnormality. IMPRESSION: No acute cardiopulmonary disease.
[2024-10-03 11:41] LABS: BUN/Creatinine Ratio 14.2 (10.0-20.0); Blood Urea Nitrogen 15 mg/dL (9-23)
[2024-10-03 11:43] LABS: Glucose 158 mg/dL (74-106)
[2024-10-03 14:19] LABS: Urine Bacteria None Seen /hpf (None Seen)
[2024-10-03 14:35] LABS: Urine Blood Negative /uL (Negative); Urine Clarity Clear (Clear); Urine Color Dark-Yellow (Yellow); Urine Hyaline Cast FEW /lpf (0 - 2); Urine Mucus FEW (None Seen); Urine Protein, UAD 1+ (Negative); Urine Specific Gravity 1.031 (1.001-1.035); Urine Squamous Epithelial Cell FEW /hpf (<5); Urine Urobilinogen 6 mg/dL (Negative); Urine WBC 4 /HPF (0-3)
[2024-10-03] MEDS ORDERED: MORPHINE SULFATE INJ 2 MG/ml SYRG IV PRN (15:45)
[2024-10-03 16:53] VITALS: PULSE 99; RESP 18; O2SAT 94
[2024-10-03 16:53] LABS: Erythrocyte Sedimentation Rate 102 mm/hr (0-20)
[2024-10-03] MEDS ORDERED: VANCOMYCIN PER PHARMACY 0 MG IV SCH (17:30)
[2024-10-03] MEDS: MORPHINE SULFATE INJ 2 MG/ml SYRG IV ONE (17:30)
--- NOTE | 2024-10-03 17:46 | DVHHPRES ---
History of Present Illness Resident Creating Document: MALACHI RONQUILLO RESIDENT Reason for Visit: Hemoptysis and shortness of breaht History of Present Illness This is a 79-year-old male with a past medical history of prostate cancer status post resection, was seen here on 09/11/2024 with chest pain. Coronary angiogram revealed diffused CAD thus patient was sent to a higher level center for coronary bypass. Surgery was uneventful and patient followed up with a cart with the Cardiothoracic surgeon on September 28, 2024. September 30 patient started noticing discomfort with his breathing. Patient also mentioned that there was pain with deep inspiration right side compared to the left side and he has also been producing he has been coughing with whitish sputum onto yesterday up until yesterday but this morning patient started coughing producing whitish phlegm mixed with blood thus prompting his visit to the ED today. Patient denied any fever, vomiting but has nausea. He denies pain and discharges at incision site. Patient currently takes Lipitor and aspirin given to him by the doctor. No side effects reported. Patient denied any abdominal pain any discharge any lower abdominal pain. Past medical history: NSTEMI, CAD s/p LHC LM/LAD and LCx stenosis, HTN, HLD, hx of prostate cancer s/p ressection and radiation, HFpEF NYHA class II, possible sleep apnea Past surgical history: Prostate cancer resection, and recent CABG, Family history: Noncontributory Social history: patient lives at home with his , Ex smoker Past Medical History See HPI Family History See HPI Review of Systems Review of Systems Constitutional: Denies fever, Mild chills HEENT: Denies headache, ear pain, ear discharges, conjunctivitis, nasal discharge throat pain Cardiovascular: Denies chest pain, palpitation, orthopnea, PND, or pedal edema Respiratory: Denies shortness of breath, cough cough, sputum production; hemoptysis, GI: Denies abdominal pain, vomiting, diarrhea, hematemesis, hematochezia; Nausea : Denies frequency, urgency, hematuria, wear catheter Endocrine: Denies unintentional weight gain or weight loss, feeling of hot flashes, Shay: Denies easy bruising, bleeding disorders, epistaxis Musculoskeletal: Denies joint pains, muscle aches Psych: No evidence of depression, kyle, suicidal ideation Allergies: Coded Allergies: NO KNOWN ALLERGIES (Unverified , 03/23/13) Medications Current Medications Medications Dose Ordered Sig/Woody Route Start Time Stop Time Status Last Admin Dose Admin Docusate Sodium 100 mg BIDPRN PRN PO 10/03/24 15:45 Morphine Sulfate 2 mg Q4HPRN PRN IV 10/03/24 15:45 Enoxaparin Sodium 40 mg DAILY SC 10/04/24 10:00 Exam Vital Signs Vital Signs Date Time Temp Pulse Resp B/P (MAP) Pulse Ox O2 Delivery O2 Flow Rate FiO2 10/03/24 16:53 99 18 129/68 (88) 94 10/03/24 16:53 Room Air* 0 21 10/03/24 12:00 98.9 98.9 Exam General Appearance: Alert, Oriented X3, Cooperative HEENT: Atraumatic, PERRLA, EOMI, Mucous membrane moist/pink Respiratory: Clear to auscultation, Normal air movement Cardiovascular: Tachycardia, Normal S1, Normal S2, No murmurs, no chest wall tenderness; healed mediastinal surgical scar Abdominal: NO distention, no tenderness, bowel sounds present, no scars noted Extremities: No clubbing, No cyanosis, No edema, Normal pulses, No tenderness/swelling Skin: No rashes, No breakdown, No significant lesion Neuro: Normal gait, Normal speech, Strength at 5/5 X4 ext, Normal tone, Sensation intact, Cranial nerves 3-12 NL, Reflexes 2+ Psych/Mental Status: Mental status NL, Mood NL Labs/Xrays Labs Test 10/03/24 15:14 10/03/24 12:09 10/03/24 11:08 Range/Units Troponin I High Sensitivity 8 </=54 ng/L Urine Color Dark-yellow Yellow Urine Clarity Clear Clear Urine pH 6.0 5.0-9.0 Urine Specific Rodessa 1.031 1.001-1.035 Urine Protein 1+ H Negative Urine Ketones Negative Negative Urine Blood Negative Negative /uL Urine Nitrite Negative Negative Urine Bilirubin Negative Negative Urine Urobilinogen 6 Negative mg/dL Urine Leukocyte Esterase Negative Negative /uL Urine RBC 3 0 - 3 /hpf Urine Microscopic WBC 4 H 0-3 /HPF Urine Squamous Epithelial Cells Few <5 /hpf Urine Bacteria None seen None Seen /hpf Urine Hyaline Casts Few 0 - 2 /lpf Urine Mucus Few None Seen Urine Glucose Normal Normal mg/dL White Blood Count 10.0 4.4-10.8 10^3/uL Red Blood Count 3.92 L 4.5-5.90 10^6/uL Hemoglobin 11.8 L 13.5-17.5 g/dL Hematocrit 34.5 L 41.0-53.0 % Mean Corpuscular Volume 87.9 80.0-100.0 fL Mean Corpuscular Hemoglobin 30.1 28.0-32.0 pg Mean Corpuscular Hemoglobin Concent 34.2 32.0-36.0 g/dL Red Cell Distribution Width 14.4 H 11.8-14.3 % Platelet Count 349 140-450 10^3/uL Mean Platelet Volume 7.7 6.9-10.8 fL Neutrophils (%) (Auto) 84.0 H 37.0-80.0 % Lymphocytes (%) (Auto) 7.2 L 10.0-50.0 % Monocytes (%) (Auto) 7.7 0.0-12.0 % Eosinophils (%) (Auto) 0.7 0.0-7.0 % Basophils (%) (Auto) 0.4 0.0-2.0 % Neutrophils # (Auto) 8.4 1.6-8.6 10 ^3/uL Lymphocytes # (Auto) 0.7 0.4-5.4 10 ^3/uL Monocytes # (Auto) 0.8 0-1.3 10 ^3/uL Eosinophils # (Auto) 0.1 0-0.8 10 ^3/uL Basophils # (Auto) 0 0-0.2 10 ^3/uL Nucleated Red Blood Cells 0.0 % Erythrocyte Sedimentation Rate 102 H 0-20 mm/hr Sodium Level 137 136-145 mmol/L Potassium Level 3.6 3.5-5.1 mmol/L Chloride Level 102 98-107 mmol/L Carbon Dioxide Level 24 20-31 mmol/L Anion Gap 11 5-15 Blood Urea Nitrogen 15 9-23 mg/dL Creatinine 1.06 0.700-1.30 mg/dL Glomerular Filtration Rate Calc 72 >90 mL/min BUN/Creatinine Ratio 14.2 10.0-20.0 Serum Glucose 158 H 74-106 mg/dL Calcium Level 9.5 8.7-10.4 mg/dL C-Reactive Protein High Sensitivity > 20.00 H <1.0 mg/dL Assessment/Plan Assessment/Plan Assessment Chest pain Rule out pericarditis --> S/P CABG this month --> Pain on inspiration --> low grade fever --> Cardiology consult ---> ordered D-dimer Rule out incision infection --> Hemoptysis mild fever --> Blood culture --> Vancomycin per pharmacy Pain management --> Tylenol 650 --> morphine 2-4 q 6hrs prn S/P CABG 09/11/2024 at [place] --> Continue Lipitor --> Continue Aspirin Hypertension --> Resume home medication Hyperlipidemia --> Continue home medication History of prostate cancer s/p resection and radiation HFpEF NYHA class II, possible sleep apnea NSTEMI, CAD s/p LHC LM/LAD and LCx stenosis, Goal of care discussed for 20 minute: Full code Case and plan discussed with Dr. Self Plan discussed with: Patient, Other (Nurse) My Orders Orders - MALACHI RONQUILLO Procedure Category Date Status Time Admit ADMIT 10/03/24 Transmitted 15:43 Code Status CODE 10/03/24 Transmitted 15:43 Vital Signs DAVID 10/03/24 In Process 15:43 Review Orders With [facility] 10/03/24 In Process Adm. 15:43 Pulse Oxymetry RT 10/03/24 Transmitted Assessment - 2 15:43 Docusate Sodium PHA 10/03/24 In Process Capsule (Colace 15:45 Notify Of Changes DAVID 10/03/24 In Process From Base 15:43 Advance Directive DAVID 10/03/24 In Process 15:43 Patient Condition ORDERS 10/03/24 Transmitted 15:43 Allergies DAVID 10/03/24 In Process 15:43 Morphine Sulfate PHA 10/03/24 In Process Injection 15:45 Enoxaparin Sodium PHA 10/04/24 In Process (Lovenox) 10:00 Oxygen By Nasal RT 10/03/24 Transmitted Cannula 15:43 Notify Of Changes DAVID 10/03/24 In Process From Base 15:43 Tube Fitter For DAVID 10/03/24 In Process 24 Hours 15:43 Incentive Spirometry ORDERS 10/03/24 Transmitted 16:26 Addendum Addendum Addendum I was physically present for the whiting portions of the service provided to patient by THE RESIDENT. I have reviewed the documentation, discussed the case with resident and agree with the resident's documentation except as noted. Also the patient's clinical case was discussed with the patient's nurse. This medical document was created using an electronic medical record system with computerized dictation system. Although this document has been carefully reviewed, there might still be some phonetic and typographical errors. These areas are purely typographical due to imperfections of the software programs, and do not reflect any compromise in the patient's medical care. Late signature. Date of Service: Oct 03, 2024 Billing Provider: KORY SELF MD Common Visit Codes: 35340-ODNNIKQ INP/OBS CARE (HIGH) Secondary Visit Codes: 93771-KSMIPEBQ CARE PLAN 30 MINUTES (20 minutes) MALACHI RONQUILLO RESIDENT Oct 03, 2024 17:46 KORY ESLF MD Oct 04, 2024 14:25
[2024-10-03] MEDS: ACETAMINOPHEN 325 MG TAB PO SCH (18:00)
[2024-10-03] MEDS: KETOROLAC TROMETH 30 MG/ML 1ML VIAL IV SCH (18:00)
[2024-10-03] MEDS: ASPirin 81 mg TAB PO ONE (18:14)
[2024-10-03] MEDS: VANCOMYCIN 1.75GM/350ML 350 ML IV ONE (18:15)
[2024-10-03 19:30] VITALS: PULSE 91; RESP 22; O2SAT 95
[2024-10-03 22:00] VITALS: BP 118/66; PULSE 81; RESP 19; TEMP 98.1; O2SAT 96
[2024-10-03 22:14] VITALS: PULSE 81; RESP 19; O2SAT 96
[2024-10-03 22:15] VITALS: BP 118/66; PULSE 81; RESP 19; TEMP 98.1; O2SAT 96
[2024-10-03] MEDS: ATORVASTATIN 20 MG TAB PO SCH (23:08)
[2024-10-04] VITALS (8 sets, daily range): BP systolic 115–134; BP diastolic 60–71; PULSE 71–95; RESP 16–20; TEMP 97.5–99.1; O2SAT 92–99
--- NOTE | 2024-10-04 07:27 | ECG ---
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
[2024-10-04 07:28] LABS: Basophils # (auto) 0 10 ^3/uL (0-0.2); Basophils % (auto) 0.3 % (0.0-2.0); Eosinophils # (auto) 0.4 10 ^3/uL (0-0.8); Eosinophils % (auto) 4.8 % (0.0-7.0); Hematocrit 31.3 % (41.0-53.0); Hemoglobin 10.5 g/dL (13.5-17.5); Lymphocytes # (auto) 0.7 10 ^3/uL (0.4-5.4); Lymphocytes % (auto) 8.9 % (10.0-50.0); Mean Corpuscular Hemoglobin 29.6 pg (28.0-32.0); Mean Corpuscular Hgb Conc. 33.5 g/dL (32.0-36.0); Mean Corpuscular Volume 88.4 fL (80.0-100.0); Monocytes # (auto) 0.9 10 ^3/uL (0-1.3); Monocytes % (auto) 11.9 % (0.0-12.0); Neutrophils # (auto) 5.7 10 ^3/uL (1.6-8.6); Neutrophils % (auto) 74.1 % (37.0-80.0); Nucleated Red Blood Cells % 0.1 %; Platelet Count (auto) 294 10^3/uL (140-450); Red Blood Cells 3.54 10^6/uL (4.5-5.90); Red Cell Distribution Width 14.9 % (11.8-14.3); White Blood Cell 7.8 10^3/uL (4.4-10.8)
--- NOTE | 2024-10-04 07:28 | ECG ---
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
[2024-10-04] MEDS: DOCUSATE SOD 100 MG CAP PO PRN (09:08)
[2024-10-04] MEDS: ASPirin 81 mg TAB PO SCH (09:08)
[2024-10-04] MEDS: ENOXAPARIN SOD 40 MG/0.4 ML SYRINGE SC SCH (09:09)
[2024-10-04] MEDS ORDERED: IOHEXOL 350 MG/ML 100ML IJ ONE (09:36)
--- NOTE | 2024-10-04 11:01 | DVH ---
CTA Chest with intravenous contrast INDICATION: r/o pe COMPARISON: None TECHNIQUE: Multidetector spiral CTA of the chest was performed of the chest with intravenous contrast . PULMONARY ANGIOGRAPHY PROTOCOL was utilized using a bolus-tracking technique centered on the main p ulmonary artery. Axial, coronal and sagittal multiplanar and MIP reformats were performed. CONTRAST: Type of contrast: Omni 350 Contrast injected: 100 ml Radiation dose : Chest: CTDI volume is 21.45 mGy. Dose-length product is 749.13 mGy*cm The dose indicators for CT are the volume computed Tomography (CT) dose Index (CTDIvol) and the dose Length product (DLP), and are measured in units of mGy and mGy-cm, respectively. These indicators are not patient dose, but values generated from the CT scanner acquisition factors. The report includes radiation exposure data for exposures received during this examination. Findings: Limited by motion. Pulmonary artery: There is a filling defect in the right lower lobe pulmonary artery extending into segmental branches. Small to moderate clot burden. No evidence of right heart strain. Lower neck: Normal thyroid. Lungs: Patchy consolidation in the lung bases right greater than left. Nodule along the right minor f issure measuring up to 11 mm. Heart/Vascular Structures: Normal heart size. No pericardial effusion. Lymph Nodes: No adenopathy Pleura: Small right and trace left pleural effusions. Musculoskeletal: No acute osseous abnormality. Soft tissues: Normal. Upper abdomen: Hepatic cysts. IMPRESSION: 1. Right lower lobe pulmonary emboli. Small to moderate clot burden. No evidence of right heart stra in. 2. Small right and trace left pleural effusions with associated bibasilar consolidation right greater than left. Right lower lobe consolidation could represent pulmonary infarction. Clinical correlation and continued follow-up is recommended. 3. Nodule along the right minor fissure. Recommend follow-up chest CT in 3-6 months. Critical Result: Pumonary Emboli Findings discussed with Nurse Sandy at 10/04/2024 10:51 AM, and acknowledged receipt and understandi ng of the findings. HS:Y
[2024-10-04] MEDS ORDERED: HEPARIN SODIUM (PORCINE) 5000 UNITS/ML 1ML VIAL IV ONE (11:15)
--- NOTE | 2024-10-04 11:16 | DVHPNRES ---
Progress Note Date Seen: Oct 04, 2024 Resident Creating Document: MALACHI RONQUILLO RESIDENT Has the PT tested + for MRSA If YES, has PT been informed?: No Medical Necessity Reason Pt with a Central, PICC or Fol: No Medical Necessity Reason History of Present Illness This is a 79-year-old male with a past medical history of prostate cancer status post resection, was seen here on 09/11/2024 with chest pain. Coronary angiogram revealed diffused CAD thus patient was sent to a higher level center for coronary bypass. Surgery was uneventful and patient followed up with a cart with the Cardiothoracic surgeon on September 28, 2024. September 30 patient started noticing discomfort with his breathing. Patient also mentioned that there was pain with deep inspiration right side compared to the left side and he has also been producing he has been coughing with whitish sputum onto yesterday up until yesterday but this morning patient started coughing producing whitish phlegm mixed with blood thus prompting his visit to the ED today. Patient denied any fever, vomiting but has nausea. He denies pain and discharges at incision site. Patient currently takes Lipitor and aspirin given to him by the doctor. No side effects reported. Patient denied any abdominal pain any discharge any lower abdominal pain. Past medical history: NSTEMI, CAD s/p LHC LM/LAD and LCx stenosis, HTN, HLD, hx of prostate cancer s/p ressection and radiation, HFpEF NYHA class II, possible sleep apnea Past surgical history: Prostate cancer resection, and recent CABG, Family history: Noncontributory Social history: patient lives at home with his , Ex smoker PN: 10/04/2024 Patient is seen and examined today at the bedside. Much better when he did mentioned who shortness of the dizzy food the discomfort with duration is a lot better than he was he was swollen. Patient however continued to have hemoptysis. I noticed 1 at the bedside today. He had a CT angiogram today showed Right lower lobe pulmonary emboli. Small to moderate clot burden. No evidence of right heart strain.Small right and trace left pleural effusions with associated bibasilar consolidation right greater than left. Right lower lobe consolidation could represent pulmonary infarction.Cardiology consult for either thrombectomy or anticoagulation given his recent cabg. Subjective Review of Systems Constitutional: Denies fever no chills no feeling of malaise, Mild distress HEENT: Denies headache, ear pain, ear discharges, conjunctivitis, nasal discharge throat pain Cardiovascular: Denies chest pain, palpitation, orthopnea, PND, or pedal edema Respiratory: Mild shortness of breath, cough, sputum production, hemoptysis, GI: Denies abdominal pain, nausea, vomiting, diarrhea, hematemesis, hematochezia, : Denies frequency, urgency, hematuria, Endocrine: Denies unintentional weight gain or weight loss, feeling of hot flashes, Shay: Denies easy bruising, bleeding disorders, epistaxis Musculoskeletal: Denies joint pains, muscle aches Psych: No evidence of depression, kyle, suicidal ideation Objective vital signs Vital Sign Date Time Temp Pulse Resp B/P (MAP) Pulse Ox O2 Delivery O2 Flow Rate FiO2 10/04/24 09:00 98.6 75 16 117/66 (83) 96 98.6 10/03/24 22:14 Room Air* 0 21 Total Intake and Output 10/03/24 10/03/24 10/04/24 15:00 23:00 07:00 Intake Total 250 ml 300 ml Balance 250 ml 300 ml medications Current Medications Medications Dose Ordered Sig/Woody Route Start Time Stop Time Status Last Admin Dose Admin Docusate Sodium 100 mg BIDPRN PRN PO 10/03/24 15:45 10/04/24 09:08 100 MG Enoxaparin Sodium 40 mg DAILY SC 10/04/24 10:00 10/04/24 09:09 40 MG Vancomycin HCl 0 ml @ 0 mls/hr UD IV 10/03/24 17:30 Ketorolac Tromethamine 15 mg Q6HPRN IV 10/03/24 18:00 10/08/24 17:59 10/03/24 23:08 15 MG Acetaminophen 650 mg Q6HP PO 10/03/24 18:00 10/03/24 23:08 650 MG Morphine Sulfate 2 mg Q6HPRN PRN IV 10/08/24 18:00 Atorvastatin Calcium 40 mg HS PO 10/03/24 22:00 10/03/24 23:08 40 MG Aspirin 81 mg DAILY PO 10/04/24 10:00 10/04/24 09:08 81 MG Examination General Appearance: Alert, Oriented X3, Cooperative, No acute distress HEENT: Atraumatic, PERRLA, EOMI, Mucous membrane moist/pink Respiratory: Clear to auscultation, Normal air movement Cardiovascular: No crepitus, mild numbness on the left chest region; Regular rate, Normal S1, Normal S2, No murmurs, no chest wall tenderness Abdominal: NO distention, no tenderness, bowel sounds present, no scars noted Extremities: No clubbing, No cyanosis, No edema, Normal pulses, No tenderness/swelling Skin: No rashes, No breakdown, No significant lesion Neuro: Normal gait, Normal speech, Strength at 5/5 X4 ext, Normal tone, Sensation intact, Cranial nerves 3-12 NL, Reflexes 2+ Psych/Mental Status: Mental status NL, Mood NL laboratory and microbiology Laboratory Tests 10/04/24 06:03 10/03/24 11:08 Test 10/03/24 11:08 Range/Units Serum Glucose 158 H 74-106 mg/dL Problem List/Assessment/Plan Problem List/Assessment/Plan Assessment Pneumonia --> ceftriaxone daily ---> doxycycline Pulmonary embolism --> Heparin drip --> Bolus not given because patient received Heparin --> Cardiology consulted for either thrombectomy or anticoagulation Rule out pericarditis --> S/P CABG this month --> Pain on inspiration --> low grade fever --> Positive ESR and CRP Rule out incision infection --> Hemoptysis mild fever --> Blood culture --> Vancomycin per pharmacy Pain management --> Tylenol 650 --> morphine 2-4 q 6hrs prn S/P CABG 09/11/2024 at [facility] --> Continue Lipitor --> Continue Aspirin Hypertension --> Resume home medication Hyperlipidemia --> Continue home medication Goal of care discussed for more than 15 minute: Full code Case and plan discussed + Dr. Michel Manzo discussed with: Patient My Orders My Orders Orders - MALACHI RONQUILLO Procedure Category Date Status Time Admit ADMIT 10/03/24 Transmitted 15:43 Code Status CODE 10/03/24 Transmitted 15:43 Vital Signs DAVDI 10/03/24 In Process 15:43 Review Orders With DAVID 10/03/24 In Process Adm. 15:43 Pulse Oxymetry RT 10/03/24 Transmitted Assessment - 2 15:43 Docusate Sodium PHA 10/03/24 In Process Capsule (Colace 15:45 Notify Of Changes DAVID 10/03/24 In Process From Base 15:43 Advance Directive DAVID 10/03/24 In Process 15:43 Patient Condition ORDERS 10/03/24 Transmitted 15:43 Allergies DAVID 10/03/24 In Process 15:43 Enoxaparin Sodium PHA 10/04/24 In Process (Lovenox) 10:00 Oxygen By Nasal RT 10/03/24 Transmitted Cannula 15:43 Notify Md Of Changes DAVID 10/03/24 In Process From Base 15:43 Instrument Person For DAVID 10/03/24 In Process 24 Hours 15:43 Incentive Spirometry ORDERS 10/03/24 Transmitted 16:26 Blood Culture CHARLES 10/04/24 In Process 07:45 Ketorolac Injection PHA 10/03/24 In Process (Toradol Injection) 18:00 Acetaminophen Tablet PHA 10/03/24 In Process (Tylenol Tablet) 18:00 Atorvastatin (Lipitor) PHA 10/03/24 In Process 22:00 Aspirin Tablet PHA 10/04/24 In Process 10:00 Morphine Sulfate PHA 10/08/24 In Process Injection 18:00 * Dietary Consult CONS 10/03/24 Transmitted 23:21 Echo 2d Mode Cardiac US 10/04/24 Logged DOP 08:22 Cardiac DIET 10/04/24 Transmitted Diet-2gna,Lofat,Lochol Breakfast Senna Pod Tablet PHA 10/04/24 In Process (Senokot Tablet) 12:00 Ceftriaxone 1gm/50ml PHA 10/05/24 Logged D5w (Rocephin) 09:00 Ceftriaxone 1gm/50ml PHA 10/04/24 Logged D5w (Rocephin) 11:00 Doxycycline PHA 10/04/24 Logged 100mg/100ml 11:00 Doxycycline PHA 10/04/24 Logged 100mg/100ml 11:00 Date of Service: Oct 04, 2024 Billing Provider: MIKE SOLARES MD Common Visit Codes: [id number] INP/OBS CARE(HIGH) MALACHI RONQUILLO RESIDENT Oct 04, 2024 11:16 MIKE SOLARES MD October 06, 2024 19:20
--- NOTE | 2024-10-04 11:56 | CONS ---
Pharmacy Clinical Information: PATIENT RECEIVED ENOXAPARIN 40MG SC 10/04 @0900 HEPARIN DRIP TO START 10/04 @1900 WITH NO BOLUS PER RX PROTOCOL, INITIAL RATE = 1800 UNITS/HR = 18 ML/HR APTT SCHEDULED FOR 10/05 @0100 PER PROTOCOL CONFIRMED WITH RN OSMAN BALL PHARMACIST Oct 04, 2024 11:56
[2024-10-04 12:42] LABS: Basophils # (auto) 0.1 10 ^3/uL (0-0.2); Basophils % (auto) 0.9 % (0.0-2.0); Eosinophils # (auto) 0.3 10 ^3/uL (0-0.8); Hematocrit 32.1 % (41.0-53.0); Lymphocytes # (auto) 0.7 10 ^3/uL (0.4-5.4); Lymphocytes % (auto) 7.9 % (10.0-50.0); Mean Corpuscular Hemoglobin 29.7 pg (28.0-32.0); Mean Corpuscular Hgb Conc. 34.3 g/dL (32.0-36.0); Mean Corpuscular Volume 86.7 fL (80.0-100.0); Monocytes # (auto) 0.9 10 ^3/uL (0-1.3); Monocytes % (auto) 10.1 % (0.0-12.0); Neutrophils # (auto) 6.5 10 ^3/uL (1.6-8.6); Neutrophils % (auto) 77.1 % (37.0-80.0); Nucleated Red Blood Cells % 0.1 %; Platelet Count (auto) 328 10^3/uL (140-450); Red Blood Cells 3.71 10^6/uL (4.5-5.90); Red Cell Distribution Width 14.8 % (11.8-14.3); White Blood Cell 8.4 10^3/uL (4.4-10.8)
[2024-10-04 12:57] LABS: INR 1.22 (0.9-1.15); Partial Thromboplastin Time 32.8 SEC (24.5-34.5); Prothrombin Time 12.7 sec (9.3-11.8)
[2024-10-04] MEDS: cefTRIAXone 1GM/50ML D5W 50 ML IV ONE (13:06)
[2024-10-04] MEDS: SENNA 8.6 MG TAB PO ONE (13:07)
--- NOTE | 2024-10-04 13:35 | DVHINCON2 ---
Date Seen: Oct 04, 2024 Referring Physician MD Demario resident Reason for Consultation Anticoagulation vs thrombectomy History of Present Illness This is a 79-year-old male patient who presents to the emergency room with chief complaint of decreased appetite, cough, and hemoptysis. The patient was recently seen at this facility and underwent a coronary angiogram with left heart catheterization on 09/08/2024 which revealed two-vessel coronary artery disease involving the left main circumflex and left anterior descending coronary arteries. The patient was transferred to [facility] where he underwent a double-vessel CABG on 09/11/2024. The patient reports following up with the Cardiothoracic surgeon on 09/15/24 and was told that "everything is looking fine". The patient reports he began feeling decreased appetite, and noticed blood-tinged sputum approximately two days ago with associated cough. He decided to come to the emergency room for further evaluation. Initial twelve lead electrocardiogram reveals sinus tachycardia with S1Q3T3 pattern. The patient denies any chest pain. Initial troponin level of 9ng/L with flat trend thereafter. Significant past medical history includes double-vessel CABG (on September 11, 2024), hypertension, dyslipidemia, GERD, gout, prostate cancer status post radiation and prostatectomy, and obesity. He has been found to have a right lower lobe pulmonary emboli. Past Medical History Past medical history reviewed. No other significant than mentioned above. Past Surgical History Prostatectomy Left ring finger amputation Family History: FH: cancer G8 FATHER Hypertension G8 MOTHER Family History Family history reviewed. Social History Patient has a 40 pack-year history, quit smoking in 1984 Patient reports to drinking one cup of whiskey per week Denies any illicit drug use Allergies: Coded Allergies: NO KNOWN ALLERGIES (Unverified , 03/23/13) Home Meds Reported Medications Diphenhydramine Hcl (Benadryl Allergy) 25 Mg Cap, 50 MG PO QPM, CAP 09/07/24 Allium Sativan Extract (Garlic) 2,000 Mg Tab, 1000 MG PO QAM 09/07/24 Magnesium (Magnesium 250 mg) 1 Tab Tab, 1 TAB PO QPM, TAB 09/07/24 Naproxen (NAPROSYN TABLET) 500 Mg Tb, 1 TAB PO BID PRN, #60 TAB 1 Refill 09/06/24 Gabapentin (Gabapentin) 300 Mg Cap, 1 CAP PO BID, #90 CAP 5 Refills 09/06/24 Potassium Chloride (POTASSIUM CHLORIDE CR) 10 Meq Tb, 1 TAB PO DAILY, #30 TAB 5 Refills 09/06/24 Metoprolol Tartrate (Metoprolol Tartrate) 25 Mg Tab, 12.5 MG PO BID, TAB 09/06/24 Losartan Potassium (Losartan Potassium) 25 Mg Tab, 1 TAB PO BID, #90 TAB 1 Refill 09/06/24 Chlorthalidone (Chlorthalidone) 25 Mg Tab, 25 MG PO DAILY, TAB 09/06/24 Simvastatin (Simvastatin) 40 Mg Tab, 1 TAB PO QPM, #30 TAB 5 Refills 09/06/24 Omeprazole (Omeprazole Dr) 20 Mg Cap, 20 MG PO DAILY, CAP 09/06/24 Allopurinol (Allopurinol) 300 Mg Tab, 300 MG PO DAILY, TAB 09/06/24 Home Meds Home medications reviewed. Current Medications Current Medications Medications (Trade) Dose Ordered Sig/Woody Route PRN Reason Start Time Stop Time Status Last Admin Docusate Sodium (Colace Capsule) 100 mg BIDPRN PRN PO FOR CONSTIPATION 10/03/24 15:45 10/04/24 09:08 Morphine Sulfate 2 mg Q4HPRN PRN IV SEVERE PAIN (7-10 PAIN SCALE) 10/03/24 15:45 10/03/24 18:20 DC Enoxaparin Sodium (Lovenox) 40 mg DAILY SC 10/04/24 10:00 10/04/24 11:45 DC 10/04/24 09:09 Vancomycin HCl 0 ml @ 0 mls/hr UD IV 10/03/24 17:30 10/04/24 10:55 DC Ketorolac Tromethamine (Toradol Injection) 15 mg Q6HPRN IV 10/03/24 18:00 10/08/24 17:59 10/03/24 23:08 Acetaminophen (Tylenol Tablet) 650 mg Q6HP PO 10/03/24 18:00 10/03/24 23:08 Morphine Sulfate 2 mg Q6HPRN PRN IV SEVERE PAIN (7-10 PAIN SCALE) 10/08/24 18:00 Atorvastatin Calcium (Lipitor) 40 mg HS PO 10/03/24 22:00 10/03/24 23:08 Aspirin 81 mg DAILY PO 10/04/24 10:00 10/04/24 09:08 Ceftriaxone Sodium 50 ml @ 100 mls/hr DAILY@09 IV 10/05/24 09:00 Doxycycline Hyclate 100 ml @ 50 mls/hr Q12HR IV 10/04/24 22:00 Heparin Sodium/ Dextrose 250 ml @ 18 mls/hr [id number] IV 10/04/24 19:00 Review of Systems Constitutional: Decreased appetite Ears, Nose, & Throat: No symptom reported Eyes: No symptom reported Neurological: No symptoms reported Pulmonary/Respiratory: Hemoptysis Cardiovascular: No symptom reported Gastrointestinal: No symptom reported Genitourinary: No symptom reported Musculoskeletal: No symptom reported Skin: No symptom reported Psychiatric: No symptom reported Endocrine: No symptom reported Hematologic/Lymphatic: No symptom reported Vital Signs Vital Signs Date Time Temp Pulse Resp B/P (MAP) Pulse Ox O2 Delivery O2 Flow Rate FiO2 10/04/24 13:00 98.8 87 18 118/63 (81) 95 98.8 10/04/24 08:00 Room Air* 0 21 Physical Exam General Appearance: Cooperative. Well-developed. Well-nourished. No acute distress. Pulmonary/Respiratory: Clear, bilateral breaths sounds. Cardiovascular/Chest: Regular rate and rhythm. Peripheral Pulses: 2+ Radial (R). 2+ Radial (L). 2+ Pedal (R). 2+ Pedal (L) Abdominal Exam: Normal bowel sounds. Ankle Exam: Negative ankle edema Lower extremities: Negative lower extremity edema Neuro/Mental Status: A/OX4, coherent. Thoughts/Psych: Normal thought pattern. Appropriate mood and affect. Good judgment and insight. Appearance: No acute distress. Skin Exam: Vertical chest incision site. Steri-Strips in place. Scabbing noticed to surgical site. Skin warm and dry Labs/Diagnostic Data Labs Test 10/04/24 12:15 10/04/24 06:03 10/03/24 18:25 10/03/24 15:14 Range/Units White Blood Count 8.4 4.4-10.8 10^3/uL Red Blood Count 3.71 L 4.5-5.90 10^6/uL Hemoglobin 11.0 L 13.5-17.5 g/dL Hematocrit 32.1 L 41.0-53.0 % Mean Corpuscular Volume 86.7 80.0-100.0 fL Mean Corpuscular Hemoglobin 29.7 28.0-32.0 pg Mean Corpuscular Hemoglobin Concent 34.3 32.0-36.0 g/dL Red Cell Distribution Width 14.8 H 11.8-14.3 % Platelet Count 328 140-450 10^3/uL Mean Platelet Volume 7.6 6.9-10.8 fL Neutrophils (%) (Auto) 77.1 37.0-80.0 % Lymphocytes (%) (Auto) 7.9 L 10.0-50.0 % Monocytes (%) (Auto) 10.1 0.0-12.0 % Eosinophils (%) (Auto) 4.0 0.0-7.0 % Basophils (%) (Auto) 0.9 0.0-2.0 % Neutrophils # (Auto) 6.5 1.6-8.6 10 ^3/uL Lymphocytes # (Auto) 0.7 0.4-5.4 10 ^3/uL Monocytes # (Auto) 0.9 0-1.3 10 ^3/uL Eosinophils # (Auto) 0.3 0-0.8 10 ^3/uL Basophils # (Auto) 0.1 0-0.2 10 ^3/uL Nucleated Red Blood Cells 0.1 % Prothrombin Time 12.7 H 9.3-11.8 sec Prothrombin Time INR 1.22 H 0.9-1.15 Activated Partial Thromboplast Time 32.8 24.5-34.5 SEC Creatinine 1.05 0.700-1.30 mg/dL Glomerular Filtration Rate Calc 73 >90 mL/min Random Vancomycin Level 13.7 H 5-10 ug/mL D-Dimer, Quantitative 3.85 H 0.0-0.49 mg/L FEU Troponin I High Sensitivity 8 </=54 ng/L Test 10/03/24 12:09 10/03/24 11:08 Range/Units Urine Color Dark-yellow Yellow Urine Clarity Clear Clear Urine pH 6.0 5.0-9.0 Urine Specific [place] 1.031 1.001-1.035 Urine Protein 1+ H Negative Urine Ketones Negative Negative Urine Blood Negative Negative /uL Urine Nitrite Negative Negative Urine Bilirubin Negative Negative Urine Urobilinogen 6 Negative mg/dL Urine Leukocyte Esterase Negative Negative /uL Urine RBC 3 0 - 3 /hpf Urine Microscopic WBC 4 H 0-3 /HPF Urine Squamous Epithelial Cells Few <5 /hpf Urine Bacteria None seen None Seen /hpf Urine Hyaline Casts Few 0 - 2 /lpf Urine Mucus Few None Seen Urine Glucose Normal Normal mg/dL Erythrocyte Sedimentation Rate 102 H 0-20 mm/hr Sodium Level 137 136-145 mmol/L Potassium Level 3.6 3.5-5.1 mmol/L Chloride Level 102 98-107 mmol/L Carbon Dioxide Level 24 20-31 mmol/L Anion Gap 11 5-15 Blood Urea Nitrogen 15 9-23 mg/dL BUN/Creatinine Ratio 14.2 10.0-20.0 Serum Glucose 158 H 74-106 mg/dL Calcium Level 9.5 8.7-10.4 mg/dL C-Reactive Protein High Sensitivity > 20.00 H <1.0 mg/dL Assessment Right lower lobe pulmonary emboli Recent double-vessel CABG (on 09/11/24) Chronic compensated HFpEF, NYHA class II Hypertension Dyslipidemia History of tobacco use Obesity Plan/Recommendation We will continue with the following plan/recommendations (Dr. Proctor): Case discussed with . CT angiogram reveals right lower lobe pulmonary emboli with small to moderate clot burden and no evidence of right heart strain. At this time, the patient is hemodynamically stable with optimal blood pressure s and is on room air. Patient remains in normal sinus rhythm on head waiter/waitress. At this time, we will recommend to continue with medical management with anticoagulation therapy. Consider oral anticoagulation with Eliquis. Continue with single antiplatelet therapy and lipid-lowering agent. Thank you for allowing us to care for this patient. Please call with any questions or conc erns. Critical care time spent: 44 minutes This medical document was created using an electronic medical record system with voice recognition software and computerized dictation system. Although this document has been carefully reviewed, there might still be some phonetic and typographical errors. Occasional wrong-word or ``sound-alike substitutions may have occurred due to the inherent limitations of voice recognition software. These areas are purely typographical due to imperfections of the software programs and do not reflect any compromise in the patient's medical care. Please read the chart carefully and recognize, using context, where these substitutions have occurred. Plan discussed with: Patient NYHA Physical activity limitations: Class2(Slight)fatigue,sob (palpitatns, angina w activityv) Date of Service: Oct 04, 2024 Billing Provider: PRAJAPATI,ASIRA GUEST SERVICE AGENT Cardiology Common Codes: [id number] INP/OBS CARE (High) Cardiology Consultation Codes: [id number] CONSULT <45MIN SAIRA PRAJAPATIP Oct 04, 2024 13:35
[2024-10-04] MEDS: DOXYCYCLINE 100MG/100ML 100 ML IV ONE (13:48)
[2024-10-04] MEDS ORDERED: PRAMIPEXOLE DIHYDROCHLORIDE MO 0.25 MG TAB PO PRN (17:45)
[2024-10-04] MEDS ORDERED: SENNA 8.6 MG TAB PO PRN (17:45)
[2024-10-04] MEDS: HEPARIN DRIP/D5W 100UNITS/ML 250 ML IV SCH (19:02)
--- NOTE | 2024-10-04 21:12 | DVH ---
Bilateral lower extremity venous duplex Clinical History: PE Comparison: None Technique: Duplex Doppler evaluation of the deep venous systems of both lower extremities from the common femora l veins to the popliteal veins including color Doppler and spectral/pulsed waveform analysis was perf ormed. Findings: RIGHT SIDE: The common femoral vein demonstrates appropriate compressibility and waveform variability. There is compressibility/patency of the great saphenous vein at the proximal thigh. The femoral vein demonstrates appropriate compressibility and waveform variability. The deep femoral vein demonstrates appropriate compressibility and waveform variability. The popliteal vein demonstrates appropriate compressibility and waveform variability. There is normal compressibility at the tibioperoneal trunk. LEFT SIDE: Nonocclusive DVT seen in the common femoral vein There is compressibility/patency of the great saphenous vein at the proximal thigh. The femoral vein demonstrates appropriate compressibility and waveform variability. The deep femoral vein demonstrates appropriate compressibility and waveform variability. The popliteal vein demonstrates appropriate compressibility and waveform variability. There is normal compressibility at the tibioperoneal trunk. Impression: 1. Right lower extremity: No DVT 2. Left lower extremity: Nonocclusive DVT seen in the common femoral vein.
[2024-10-04] MEDS: DOXYCYCLINE 100MG/100ML 100 ML IV SCH (22:08)
[2024-10-05] VITALS (9 sets, daily range): BP systolic 114–149; BP diastolic 65–78; PULSE 74–95; RESP 16–19; TEMP 97.8–98.4; O2SAT 92–98
[2024-10-05 01:32] LABS: INR 1.19 (0.9-1.15); Partial Thromboplastin Time 44.1 SEC (24.5-34.5); Prothrombin Time 12.4 sec (9.3-11.8)
[2024-10-05] MEDS: HEPARIN DRIP/D5W 100UNITS/ML 250 ML IV SCH (02:45)
[2024-10-05 07:31] LABS: Basophils # (auto) 0 10 ^3/uL (0-0.2); Basophils % (auto) 0.7 % (0.0-2.0); Eosinophils # (auto) 0.4 10 ^3/uL (0-0.8); Hemoglobin 10.7 g/dL (13.5-17.5); Lymphocytes # (auto) 0.7 10 ^3/uL (0.4-5.4); Mean Corpuscular Hemoglobin 29.2 pg (28.0-32.0); Mean Corpuscular Hgb Conc. 33.5 g/dL (32.0-36.0); Mean Corpuscular Volume 87.4 fL (80.0-100.0); Monocytes # (auto) 0.7 10 ^3/uL (0-1.3); Monocytes % (auto) 11.1 % (0.0-12.0); Neutrophils # (auto) 4.4 10 ^3/uL (1.6-8.6); Neutrophils % (auto) 71.2 % (37.0-80.0); Nucleated Red Blood Cells % 0.1 %; Platelet Count (auto) 255 10^3/uL (140-450); Red Blood Cells 3.66 10^6/uL (4.5-5.90); Red Cell Distribution Width 14.5 % (11.8-14.3); White Blood Cell 6.1 10^3/uL (4.4-10.8)
[2024-10-05 07:35] LABS: INR 1.22 (0.9-1.15); Partial Thromboplastin Time 30.6 SEC (24.5-34.5); Prothrombin Time 12.7 sec (9.3-11.8)
[2024-10-05] MEDS: cefTRIAXone 1GM/50ML D5W 50 ML IV SCH (08:51)
[2024-10-05] MEDS: APIXABAN 5 MG TAB PO SCH (08:52)
--- NOTE | 2024-10-05 11:25 | DVHPN2 ---
Consult Progress Note Subjective Other Systems: Patient in normal sinus rhythm at time of assessment Denies any cardiac symptoms Objective vital signs Vital Sign Date Time Temp Pulse Resp B/P (MAP) Pulse Ox O2 Delivery O2 Flow Rate FiO2 10/05/24 09:21 97.8 83 17 133/78 (96) 95 97.8 10/05/24 08:00 Room Air* 0 21 Total Intake and Output 10/04/24 10/04/24 10/05/24 15:00 23:00 07:00 Intake Total 1050 ml 355 ml Balance 1050 ml 355 ml medications Current Medications Medications Dose Ordered Sig/Woody Route Start Time Stop Time Status Last Admin Dose Admin Acetaminophen 650 mg Q6HP PO 10/03/24 18:00 10/05/24 06:00 650 MG Morphine Sulfate 2 mg Q6HPRN PRN IV 10/08/24 18:00 Atorvastatin Calcium 40 mg HS PO 10/03/24 22:00 10/04/24 22:09 40 MG Aspirin 81 mg DAILY PO 10/04/24 10:00 10/05/24 08:52 81 MG Ceftriaxone Sodium 50 ml @ 100 mls/hr DAILY@09 IV 10/05/24 09:00 10/05/24 08:51 100 MLS/HR Doxycycline Hyclate 100 ml @ 50 mls/hr Q12HR IV 10/04/24 22:00 10/05/24 09:48 50 MLS/HR Sennosides 8.6 mg QHSP PRN PO 10/04/24 17:45 Pramipexole Dihydrochloride 0.125 mg ONCE PRN PO 10/04/24 17:45 Apixaban 10 mg BID PO 10/05/24 10:00 10/12/24 09:59 10/05/24 08:52 10 MG Examination: GENERAL:Normal, LUNGS:Normal, CVS:Normal, NEURO:Normal laboratory and microbiology Laboratory Tests 10/05/24 06:06 10/04/24 06:03 10/03/24 11:08 Test 10/03/24 11:08 Range/Units Serum Glucose 158 H 74-106 mg/dL Problem List/Assessment/Plan Problem List/Assessment/Plan Right lower lobe pulmonary emboli Recent double-vessel CABG (on 09/11/24) Chronic compensated HFpEF, NYHA class II Hypertension Dyslipidemia Nonocclusive DVT in left common femoral vein History of tobacco use Obesity Plan/Recommendations (Dr. Proctor): Case discussed with . CT angiogram reveals right lower lobe pulmonary emboli with small to moderate clot burden and no evidence of right heart strain. At this time, the patient is hemodynamically stable with optimal blood pressures and is on room air. Patient remains in normal sinus rhythm on cardiac care unit nurse. At this time, we will recommend to continue with medical management with oral anticoagulation therapy. Continue with single antiplatelet therapy and lipid-lowering agent. The patient states he has set up an appointment to follow up in the outpatient setting with accounts receivable bookkeeper . Thank you for allowing us to care for this patient. Please call with any questions or concerns. This medical document was created using an electronic medical record system with voice recognition software and computerized dictation system. Although this document has been carefully reviewed, there might still be some phonetic and typographical errors. Occasional wrong-word or ``sound-alike substitutions may have occurred due to the inherent limitations of voice recognition software. These areas are purely typographical due to imperfections of the software programs and do not reflect any compromise in the patient's medical care. Please read the chart carefully and recognize, using context, where these substitutions have occurred. Plan discussed with: Patient Dietary Evaluation Review Comments: constipation resolved. Encourage fluid and fiber to avoid constipation, Recommend a low fat low cholesterol diet texture as tolearted. Expected Outcomes/Goals: gradual wt loss. Date of Service: October 05, 2024 Billing Provider: SAIRA PRAJAPATI Common Visit Codes: [id number] INP/OBS CARE(HIGH) SAIRA PRAJAPATI October 05, 2024 11:25
--- NOTE | 2024-10-05 11:32 | DVHDSRES ---
Discharge Summary Date of Admission Resident Creating Document: MALACHI RONQUILLO RESIDENT Oct 03, 2024 at 15:43 Date of Discharge: October 05, 2024 Admitting Diagnosis hemoptysis shortness of breath with exertion Labs/Diagnostic Data: Signed PATIENT: LORAINE ORTIZ ACCT: [id number] UNIT: [id number] : 1945 LOC: TELE-CENTR ROOM / BED: 0219T / A AGE / SEX: 79 / M ADM STATUS: ADM IN SERVICE 14 ORDERING PHYSICIAN: ABEBA STEPHEN MD PROCEDURE(s): BLDVT - BiLat Lower DVT REASON: PE ORDER NUMBER(s): [id number], ACCESSION NUMBER(s): [id number] Bilateral lower extremity venous duplex Clinical History: PE Comparison: None Technique: Duplex Doppler evaluation of the deep venous systems of both lower extremities from the common femoral veins to the popliteal veins including color Doppler and spectral/pulsed waveform analysis was performed. Findings: RIGHT SIDE: The common femoral vein demonstrates appropriate compressibility and waveform variability. There is compressibility/patency of the great saphenous vein at the proximal thigh. The femoral vein demonstrates appropriate compressibility and waveform variability. The deep femoral vein demonstrates appropriate compressibility and waveform variability. The popliteal vein demonstrates appropriate compressibility and waveform variability. There is normal compressibility at the tibioperoneal trunk. LEFT SIDE: Nonocclusive DVT seen in the common femoral vein There is compressibility/patency of the great saphenous vein at the proximal thigh. The femoral vein demonstrates appropriate compressibility and waveform variability. The deep femoral vein demonstrates appropriate compressibility and waveform variability. The popliteal vein demonstrates appropriate compressibility and waveform variability. There is normal compressibility at the tibioperoneal trunk. Impression: 1. Right lower extremity: No DVT 2. Left lower extremity: Nonocclusive DVT seen in the common femoral vein. ATED BY: MARIA ISABEL ARNETT MD DICTATED DATE/TIME: 10/04/242109 PATIENT: LORAINE ORTIZ ACCT: [id number] UNIT: [id number] : 1945 LOC: TELE-CENTR ROOM / BED: 0219T / A AGE / SEX: 79 / M ADM STATUS: ADM IN SERVICE 0859 ORDERING PHYSICIAN: MIKE PEARSON MD PROCEDURE(s): CTACH - CT ANGIO CHEST CONTRAST REASON: r/o pe ORDER NUMBER(s): [id number], ACCESSION NUMBER(s): [id number] CTA Chest with intravenous contrast INDICATION: r/o pe COMPARISON: None TECHNIQUE: Multidetector spiral CTA of the chest was performed of the chest with intravenous contrast. PULMONARY ANGIOGRAPHY PROTOCOL was utilized using a bolus- tracking technique centered on the main pulmonary artery. Axial, coronal and sagittal multiplanar and MIP reformats were performed. CONTRAST: Type of contrast: Omni 350 Contrast injected: 100 ml Radiation dose : Chest: CTDI volume is 21.45 mGy. Dose-length product is 749.13 mGy*cm The dose indicators for CT are the volume computed Tomography (CT) dose Index (CTDIvol) and the dose Length product (DLP), and are measured in units of mGy and mGy-cm, respectively. These indicators are not patient dose, but values generated from the CT scanner acquisition factors. The report includes radiation exposure data for exposures received during this examination. Findings: Limited by motion. Pulmonary artery: There is a filling defect in the right lower lobe pulmonary artery extending into segmental branches. Small to moderate clot burden. No evidence of right heart strain. Lower neck: Normal thyroid. Lungs: Patchy consolidation in the lung bases right greater than left. Nodule along the right minor fissure measuring up to 11 mm. Heart/Vascular Structures: Normal heart size. No pericardial effusion. Lymph Nodes: No adenopathy Pleura: Small right and trace left pleural effusions. Musculoskeletal: No acute osseous abnormality. Soft tissues: Normal. Upper abdomen: Hepatic cysts. IMPRESSION: 1. Right lower lobe pulmonary emboli. Small to moderate clot burden. No evidence of right heart strain. 2. Small right and trace left pleural effusions with associated bibasilar consolidation right greater than left. Right lower lobe consolidation could represent pulmonary infarction. Clinical correlation and continued follow-up is recommended. 3. Nodule along the right minor fissure. Recommend follow-up chest CT in 3-6 months. Critical Result: Pumonary Emboli Findings discussed with Nurse Delgado at 10/04/2024 10:51 AM, and acknowledged receipt and understanding of the findings. HS:Y ATED BY: AMBROSIO RBOERT MD Signed PATIENT: LORAINE ORTIZ ACCT: [id number] UNIT: [id number] : 1945 LOC: ER ROOM / BED: / AGE / SEX: 79 / M ADM STATUS: REG ER SERVICE 1111 ORDERING PHYSICIAN: NINI BIANCHI MD PROCEDURE(s): CXR2 - CHEST TWO VIEWS ROUTINE REASON: cp ORDER NUMBER(s): [id number], ACCESSION NUMBER(s): [id number] XY CHEST TWO VIEWS ROUTINE CLINICAL HISTORY: cp COMPARISON: None TECHNIQUE: Frontal and lateral view of the chest was obtained FINDINGS: Lines and Tubes: None Lungs: No focal consolidation. Pleura: No effusion. No pneumothorax. Cardiomediastinal contours: Unremarkable Bones: No acute osseous abnormality. IMPRESSION: No acute cardiopulmonary disease. ATED BY: KRYSTLE GUILLEN MD DICTATED DATE/TIME: 10/03/24 1137 Laboratory Results Test 10/05/24 06:06 10/04/24 06:03 10/03/24 18:25 10/03/24 15:14 White Blood Count 6.1 10^3/uL (4.4-10.8) Red Blood Count 3.66 10^6/uL (4.5-5.90) Hemoglobin 10.7 g/dL (13.5-17.5) Hematocrit 32.0 % (41.0-53.0) Mean Corpuscular Volume 87.4 fL (80.0-100.0) Mean Corpuscular Hemoglobin 29.2 pg (28.0-32.0) Mean Corpuscular Hemoglobin Concent 33.5 g/dL (32.0-36.0) Red Cell Distribution Width 14.5 % (11.8-14.3) Platelet Count 255 10^3/uL (140-450) Mean Platelet Volume 8.5 fL (6.9-10.8) Neutrophils (%) (Auto) 71.2 % (37.0-80.0) Lymphocytes (%) (Auto) 11.0 % (10.0-50.0) Monocytes (%) (Auto) 11.1 % (0.0-12.0) Eosinophils (%) (Auto) 6.0 % (0.0-7.0) Basophils (%) (Auto) 0.7 % (0.0-2.0) Neutrophils # (Auto) 4.4 10 ^3/uL (1.6-8.6) Lymphocytes # (Auto) 0.7 10 ^3/uL (0.4-5.4) Monocytes # (Auto) 0.7 10 ^3/uL (0-1.3) Eosinophils # (Auto) 0.4 10 ^3/uL (0-0.8) Basophils # (Auto) 0 10 ^3/uL (0-0.2) Nucleated Red Blood Cells 0.1 % Prothrombin Time 12.7 sec (9.3-11.8) Prothrombin Time INR 1.22 (0.9-1.15) Activated Partial Thromboplast Time 30.6 SEC (24.5-34.5) Creatinine 1.05 mg/dL (0.700-1.30) Glomerular Filtration Rate Calc 73 mL/min (>90) Random Vancomycin Level 13.7 ug/mL (5-10) D-Dimer, Quantitative 3.85 mg/L FEU (0.0-0.49) Troponin I High Sensitivity 8 ng/L (</=54) Test 10/03/24 12:09 10/03/24 11:08 Urine Color Dark-yellow (Yellow) Urine Clarity Clear (Clear) Urine pH 6.0 (5.0-9.0) Urine Specific [place] 1.031 (1.001-1.035) Urine Protein 1+ (Negative) Urine Ketones Negative (Negative) Urine Blood Negative /uL (Negative) Urine Nitrite Negative (Negative) Urine Bilirubin Negative (Negative) Urine Urobilinogen 6 mg/dL (Negative) Urine Leukocyte Esterase Negative /uL (Negative) Urine RBC 3 /hpf (0 - 3) Urine Microscopic WBC 4 /HPF (0-3) Urine Squamous Epithelial Cells Few /hpf (<5) Urine Bacteria None seen /hpf (None Seen) Urine Hyaline Casts Few /lpf (0 - 2) Urine Mucus Few (None Seen) Urine Glucose Normal mg/dL (Normal) Erythrocyte Sedimentation Rate 102 mm/hr (0-20) Sodium Level 137 mmol/L (136-145) Potassium Level 3.6 mmol/L (3.5-5.1) Chloride Level 102 mmol/L (98-107) Carbon Dioxide Level 24 mmol/L (20-31) Anion Gap 11 (5-15) Blood Urea Nitrogen 15 mg/dL (9-23) BUN/Creatinine Ratio 14.2 (10.0-20.0) Serum Glucose 158 mg/dL (74-106) Calcium Level 9.5 mg/dL (8.7-10.4) C-Reactive Protein High Sensitivity > 20.00 mg/dL (<1.0) Other Laboratory Tests 10/05/24 06:06 10/04/24 06:03 10/03/24 11:08 Brief Hx & Hospital Course: History of Present Illness This is a 79-year-old male with a past medical history of prostate cancer status post resection, was seen here on 09/11/2024 with chest pain. Coronary angiogram revealed diffused CAD thus patient was sent to a higher level center for coronary bypass. Surgery was uneventful and patient followed up with a cart with the Cardiothoracic surgeon on September 28, 2024. September 30 patient started noticing discomfort with his breathing. Patient also mentioned that there was pain with deep inspiration right side compared to the left side and he has also been producing he has been coughing with whitish sputum onto yesterday up until yesterday but this morning patient started coughing producing whitish phlegm mixed with blood thus prompting his visit to the ED today. Patient denied any fever, vomiting but has nausea. He denies pain and discharges at incision site. Patient currently takes Lipitor and aspirin given to him by the doctor. No side effects reported. Patient denied any abdominal pain any discharge any lower abdominal pain. Past medical history: NSTEMI, CAD s/p LHC LM/LAD and LCx stenosis, HTN, HLD, hx of prostate cancer s/p ressection and radiation, HFpEF NYHA class II, possible sleep apnea Past surgical history: Prostate cancer resection, and recent CABG, Family history: Noncontributory Social history: patient lives at home with his , Ex smoker Brief Hospital course In the ED, we took blood for culture, CT chest and CTA and started him on antibiotics and pain management. Chest CT showed pneumonia and CT angiogram today showed Right lower lobe pulmonary emboli. Small to moderate clot burden. No evidence of right heart strain.Small right and trace left pleural effusions with associated bibasilar consolidation right greater than left. Right lower lobe consolidation could represent pulmonary infarction. Cardiology consult for either thrombectomy or anticoagulation given his recent cabg. No growth on blood culture. Patient was continue the anabiotics. Started on heparin protocol. Cardiology consult for the possibility of thrombectomy vs just anticoagulation. Upon review of the image, they advise to anticoagulate. I switch from Heparin to Elisquis 10mg bid for 7 days and then will continue with 5 mg bid for 6 months.I also contact the patient's cardiothoracic surgeon to give him an update on the patient. Review of Systems Constitutional: Denies fever no chills no feeling of malaise, feeling better HEENT: Denies headache, ear pain, ear discharges, conjunctivitis, nasal discharge throat pain Cardiovascular: Denies chest pain, palpitation, orthopnea, PND, or pedal edema Respiratory: Mild shortness of breath, cough, sputum production, hemoptysis--> Improved GI: Denies abdominal pain, nausea, vomiting, diarrhea, hematemesis, hematochezia, : Denies frequency, urgency, hematuria, Endocrine: Denies unintentional weight gain or weight loss, feeling of hot flashes, Shay: Denies easy bruising, bleeding disorders, epistaxis Musculoskeletal: Denies joint pains, muscle aches Psych: No evidence of depression, kyle, suicidal ideation Examination General Appearance: Alert, Oriented X3, Cooperative, No acute distress HEENT: Atraumatic, PERRLA, EOMI, Mucous membrane moist/pink Respiratory: Clear to auscultation, Normal air movement Cardiovascular: No crepitus, mild numbness on the left chest region; Regular rate, Normal S1, Normal S2, No murmurs, no chest wall tenderness Abdominal: NO distention, no tenderness, bowel sounds present, no scars noted Extremities: No clubbing, No cyanosis, No edema, Normal pulses, No tenderness/swelling Skin: No rashes, No breakdown, No significant lesion Neuro: Normal gait, Normal speech, Strength at 5/5 X4 ext, Normal tone, Sensation intact, Cranial nerves 3-12 NL, Reflexes 2+ Psych/Mental Status: Mental status NL, Mood NL Diagnoses: Pneumonia possible gram negative/gram+ Pulmonary embolism Nonocclusive DVT seen in the common femoral vein. 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 Pearson Consults/Reason for consult Reason for Consultation: Anticoagulation vs thrombectomy Condition at Discharge: Good Final Diagnosis/Problems List Pneumonia possible gram negative/gram+ Pulmonary embolism Nonocclusive DVT seen in the common femoral vein. Rule out pericarditis Rule out incision infection Pain management S/P CABG 09/11/2024 at [facility] Hyperlipidemia Discharge Disposition: Home Discharge Statement: "Patient was advised to return to the ER or call 911 if any headaches, dizziness, shortness of breath, chest pain, abdominal pain, bleeding, fevers, or worsening of medical condition. Patient was counseled about treatment plan, medications, possible side effects, patientverbalized understanding. All questions were answered to the best of my ability. This discharge took greater then 30 minutes in planning, reviewing documentation, counseling the patient, and discussing with other team members." ASSESSMENT ASSESSMENT Assessment Date of Service: October 05, 2024 Billing Provider: MIKE PEARSON MD Common Visit Codes: 78676-BXW/OBS DISCH DAY >30min MALACHI RONQUILLO October 05, 2024 11:32 MIKE PEARSON MD October 06, 2024 19:26
[2024-10-05] MEDS ORDERED: APIX5TAB PO ×2 (11:33)
[2024-10-05] MEDS ORDERED: ATOR20TA50 PO (11:35)
[2024-10-05] MEDS ORDERED: DOXY-286 PO (11:35)
[2024-10-05] MEDS ORDERED: ASPI-325 PO (11:35)
[2024-10-05] MEDS ORDERED: METO25TA5 PO (12:10)
[2024-10-05] MEDS ORDERED: LEVO750T40 PO (12:12)
--- NOTE | 2024-10-05 12:32 | ECG ---
[facility] Test Date: 2024-10-03 Test Time: 11:02:50 Pat Name: LORAINE ORTIZ Department: ER Room: 0219T A Gender: M [employer] T[employer]: JEANNIE : 1945 Requested By: NINI BIANCHI Order Number: [id number] Reading MD: Glen Proctor Measurements Intervals [place] Rate: 101 P: 54 MI: 186 QRS: 54 QRSD: 89 T: 96 QT: 370 QTc: 480 Interpretive Statements Sinus tachycardia Nonspecific T abnrm, anterolateral leads Borderline prolonged QT interval Electronically Signed On 10-05-2024 13:08:25 PDT by Glen Proctor Please click the below link to view image of tracing.
--- NOTE | 2024-10-05 16:15 | DVHSR ---
APPROVED REPORT EXAM: LIMITED Two-dimensional and M-mode echocardiogram with Doppler and color Doppler. Blood Pressure: 115/66 mmHg INDICATION Rule out structural changes post CABG RISK FACTORS Height: 70, Weight: 221 DIMENSIONS EF (%) 48.0 (55-70%)Rt. Atrium (1.9-4.0cm)Asc. Aorta cm Mitral Valve MitralMitral Stenosis E/A ratio0.02D MVAcm2 Other Information Technically limited study due to eval for function only. Conclusion Technically difficult study. Off axis views. Apical windows. There appeared to be normal chamber sizes. There appears to be mild aortic sclerosis and mild mitral annular calcification from the limited view s obtained. Tricuspid appears to be structurally normal. The pulmonic is not visualized. EF is about 55% with normal RV function. Dopplers unremarkable. No pericardial effusion masses or vegetations discernible.
[2024-10-08] MEDS ORDERED: MORPHINE SULFATE INJ 2 MG/ml SYRG IV PRN (18:00)
== END 2024-10-05 21:06 | disposition home or self-care (01) | DRG 177 ==
LOC: ER 10:55 → OVERFLOW 15:43 → TELE-CENTR 21:54
PROVIDERS: ADMIT Student in an Organized Health Care Education/Training Program; ATTEND Student in an Organized Health Care Education/Training Program
DX: J15.69 Pneumonia due to other Gram-negative bacteria (principal); I26.99 Other pulmonary embolism without acute cor pulmonale; I31.9 Disease of pericardium, unspecified; I50.32 Chronic diastolic (congestive) heart failure; I82.412 Acute embolism and thrombosis of left femoral vein; T81.40XA Infection following a procedure, unspecified, initial encounter; I11.0 Hypertensive heart disease with heart failure; E78.5 Hyperlipidemia, unspecified; E66.9 Obesity, unspecified; J15.9 Unspecified bacterial pneumonia; I25.10 Atherosclerotic heart disease of native coronary artery without angina pectoris; Z95.1 Presence of aortocoronary bypass graft; Z92.3 Personal history of irradiation; Z68.30 Body mass index [BMI] 30.0-30.9, adult; Z79.899 Other long term (current) drug therapy; I25.2 Old myocardial infarction; Z82.49 Family history of ischemic heart disease and other diseases of the circulatory system; Z87.891 Personal history of nicotine dependence; Z89.022 Acquired absence of left finger(s); Z85.46 Personal history of malignant neoplasm of prostate; Y84.8 Other medical procedures as the cause of abnormal reaction of the patient, or of later complication, without mention of misadventure at the time of the procedure; Y92.89 Other specified places as the place of occurrence of the external cause
CPT/HCPCS: 36415; 71046; 71275; 80048; 80202; 81001; 82565; 84484; 85025; 85379; 85610; 85652; 85730; 86141; 87040; 87081; 93005; 93306; 93970; 99291; G0378; J1885

== ENCOUNTER → 2024-10-13 | Outpatient (CLI) | payer MEDICARE, OTHER ==
[~2024-10-13] MED LIST changes: +APIX5TAB PO; +ASPI-325 PO; +ATOR20TA50 PO; +DOXY-286 PO; +LEVO750T40 PO
--- NOTE | 2024-10-13 11:36 | DVH ---
EXAM: XY CHEST TWO VIEWS ROUTINE CLINICAL HISTORY: POST OP SOB COMPARISON: XY CHEST TWO VIEWS ROUTINE on DOS: 10/03/24 TECHNIQUE: Frontal and lateral view of the chest was obtained FINDINGS: Lines and Tubes: None Lungs: No focal consolidation. Pleura: No effusion. No pneumothorax. Cardiomediastinal contours: Unremarkable Bones: No acute osseous abnormality. IMPRESSION: No acute cardiopulmonary disease.
== END | disposition home or self-care (01) ==
LOC: Rad HDHVI 10:54
PROVIDERS: ATTEND Internal Medicine Cardiovascular Disease
DX: R06.02 Shortness of breath (principal)
CPT/HCPCS: 71046

== ENCOUNTER 2024-10-25 16:16 | Outpatient (CLI) | payer MEDICARE, OTHER | END 2024-10-25 17:00 | disposition home or self-care (01) | LOC: Rad HDHVI 16:16 | PROVIDERS: ATTEND Internal Medicine Cardiovascular Disease | DX: R60.9 Edema, unspecified (principal) | CPT/HCPCS: 93970 ==

== ENCOUNTER 2025-05-18 08:00 | Outpatient (CLI) | payer MEDICARE ==
[~2025-05-18] VITALS: Ht 180.3 cm; Wt 87.1 kg
== END 2025-05-18 17:00 | disposition home or self-care (01) ==
LOC: Rad HDHVI 08:00
PROVIDERS: ATTEND Internal Medicine Cardiovascular Disease
DX: I44.0 Atrioventricular block, first degree (principal); I49.3 Ventricular premature depolarization; I49.1 Atrial premature depolarization; R00.0 Tachycardia, unspecified; R07.89 Other chest pain; I25.2 Old myocardial infarction; R94.31 Abnormal electrocardiogram [ECG] [EKG]; I10 Essential (primary) hypertension; E78.00 Pure hypercholesterolemia, unspecified; I25.10 Atherosclerotic heart disease of native coronary artery without angina pectoris; Z95.1 Presence of aortocoronary bypass graft
CPT/HCPCS: 78452; 93017; A9500; 96374

== ENCOUNTER 2025-05-22 08:45 | Outpatient (CLI) | payer MEDICARE | END 2025-05-22 17:00 | disposition home or self-care (01) | LOC: Rad HDHVI 08:45 | PROVIDERS: ATTEND Internal Medicine Cardiovascular Disease | DX: I50.31 Acute diastolic (congestive) heart failure (principal); R07.9 Chest pain, unspecified | CPT/HCPCS: 93306 ==